=== PATIENT | male | born 1965 | race American Indian/Alaskan Native ===

== ENCOUNTER 2021-12-24 05:06 | Emergency (ER) | payer MEDICAID ==
--- NOTE | 2021-12-24 05:36 | Event Note ---
Date: 12/24/21 The patient was evaluated in the emergency department for symptoms described in the history of present illness. He/she was evaluated in the context of the global COVID-19 pandemic, which necessitated consideration that the patient might be at risk for infection with the virus that causes COVID-19. Institutional protocols and algorithms that pertain to the evaluation of patients at risk for COVID-19 are in a state of rapid change based on information released by regulatory bodies including the CDC and federal and state organizations. These policies and algorithms were followed during the patient's care in the emergency department. Please note that these policies, procedures and recommendations changed on a rapid basis. EMS documentation not available at time of chart dictation Medical screening examination: 56-year-old gentleman with a history of end-stage renal disease on hemodialysis, reportedly on home oxygen, referred to the emergency room by outpatient hemodialysis because of report of high potassium level, and hypoxia/low oxygen level. 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 Obtain EKG, chest x-ray, appropriate laboratory studies. Oncoming ER provider to perform detailed history and physical, and arrange for final disposition and therapy. Patient comfortable in a stretcher now, and does not appear to be in any acute distress
--- NOTE | 2021-12-24 06:13 | XRay Report ---
XR chest 1V ap INDICATION / CLINICAL INFORMATION: esrd dyspneas. COMPARISON: None available. FINDINGS: SUPPORT DEVICES: Right IJ central venous catheter projects over the right atrium. HEART /PULMONARY VASCULATURE: Cardiac enlargement with pulmonary vasculature congestion. LUNGS / PLEURA: Mild interstitial edema. No focal airspace consolidation. No pneumothorax. Additional findings: Diffuse sclerosis of the osseous structures likely reflect renal osteodystrophy. No acute osseous findings. IMPRESSION: Fluid overload/CHF with mild interstitial edema. Signer Name: Reid Ritter MD Signed: 12/24/2021 6:09 AM Workstation Name: [id number]
--- NOTE | 2021-12-24 06:24 | Emergency Department Report ---
ED General Adult HPI - General Chief complaint: Recheck/Abnormal Lab/Rx Stated complaint: SOB, ABNORMAL LABS Time Seen by Provider: 12/24/21 05:56 Source: EMS Mode of arrival: Stretcher Limitations: No Limitations - History of Present Illness Initial comments: Patient states that he is here because dialysis told him his potassium was high. He was dialyzed on Tuesday. After dialysis, blood work was sent. He went to dialysis this morning. They told him that his result from Tuesday showed a potassium of 7 and told him he needed to come here. They did not repeat the result. They did not treat his result. They did not call him beforehand. Patient states that he feels well. He is supposed to be dialyzed this morning. He denies chest pain. Has no shortness of breath. He has no cough or congestion. There is no vomiting or diarrhea. 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 Severity scale (0 -10): 0 - Related Data Allergies Allergy/AdvReac Type Severity Reaction Status Date / Time No Known Allergies Allergy Verified 12/24/21 05:13 ED Review of Systems ROS: Stated complaint: SOB, ABNORMAL LABS Other details as noted in HPI Comment: All other systems reviewed and negative Constitutional: denies: fever Eyes: denies: vision change ENT: denies: epistaxis Respiratory: denies: cough Cardiovascular: denies: chest pain Endocrine: denies: unexplained weight loss Gastrointestinal: denies: abdominal pain Musculoskeletal: denies: back pain Skin: denies: rash Neurological: denies: headache Hematological/Lymphatic: denies: easy bruising ED Past Medical Hx - Past Medical History Hx Hypertension: Yes Hx Renal Disease: Yes (On dialysis) Additional medical history: ESRD ON DIALYSIS - Surgical History Past Surgical History?: Yes Additional Surgical History: AV fistula - Family History Family history: hypertension - Social History Smoking Status: Unknown if ever smoked ED Physical Exam - General Limitations: No Limitations, Other (Pulse ox noted and normal) General appearance: alert, in no apparent distress - Head Head exam: Present: atraumatic, normocephalic, normal inspection - Eye Eye exam: Present: normal appearance, EOMI. Absent: scleral icterus - ENT ENT exam: Present: normal orophraynx, normal external ear exam - Neck Neck exam: Present: normal inspection. Absent: meningismus - Respiratory Respiratory exam: Present: normal lung sounds bilaterally. Absent: respiratory distress - Cardiovascular Cardiovascular Exam: Present: regular rate, normal rhythm - GI/Abdominal GI/Abdominal exam: Present: soft. Absent: distended, tenderness - Extremities Exam Extremities exam: Present: normal capillary refill - Back Exam Back exam: Absent: CVA tenderness (R), CVA tenderness (L) - Neurological Exam Neurological exam: Present: alert, oriented X3, CN II-XII intact. Absent: motor sensory deficit - Psychiatric Psychiatric exam: Present: normal affect, normal mood - Skin Skin exam: Present: warm, dry ED Course Vital Signs 12/24/21 12/24/21 12/24/21 05:14 05:31 05:40 Temperature 97.8 F Pulse Rate 101 H 99 H Respiratory 22 18 Rate Blood Pressure 127/91 Blood Pressure 119/82 [Left] O2 Sat by Pulse 97 97 97 Oximetry 12/24/21 06:31 Temperature Pulse Rate 96 H Respiratory 12 Rate Blood Pressure 134/88 Blood Pressure [Left] O2 Sat by Pulse 100 Oximetry - Reevaluation(s) Reevaluation #1: 12/24/21 06:23 EKG has been noted. Labs have been ordered previously. The laboratory helper has been asked to draw the blood work at this time as this has not been sent yet. Reevaluation #2: 12/24/21 06:58 Chemistries were hemolyzed and this is being redrawn. The sample was rejected by the lab. CBC and coags have been reviewed. Reevaluation #3: 12/24/21 07:43 Potassium was noted. It is elevated at 5.9. This was treated and the patient was referred to dialysis today. He does not require emergent dialysis in the hospital. There is no EKG change. He has hyperkalemia and volume overload can be addressed by dialysis today. ED Medical Decision Making - Lab Data Result diagrams: 12/24/21 06:10 12/24/21 07:03 - EKG Data -: EKG Interpreted by Me - EKG Data When compared to previous EKG there are: previous EKG unavailable 12/24/21 06:23 [id number]-EKG shows normal sinus rhythm at 96. Intervals are normal including a QRS of 109 and a QT corrected of 468. Patient has no ST elevation to suggest STEMI. There is poor R wave progression. Patient has T wave inversion in lead III. There is no peaked T waves suggestive of hyperkalemia. - Radiology Data Radiology results: report reviewed Critical Care Time: No Critical care attestation.: If time is entered above; I have spent that time in minutes in the direct care of this critically ill patient, excluding procedure time. ED Disposition Clinical Impression: ESRD on dialysis, Hyperkalemia Disposition: HOME / SELF CARE / HOMELESS Is pt being admited?: No Condition: Stable Instructions: Hyperkalemia, Dialysis Additional Instructions: Go to dialysis. Return for problems. Follow-up with your kidney doctor and your family doctor. Referrals: CARL ALEJANDRE MD [Referring] - 3-5 Days VALERIE MONTELONGO MD [Staff Physician] - 3-5 Days
[2021-12-24 06:39] LABS: Hematocrit 35.2 % (35.5-45.6); Hemoglobin 10.8 gm/dl (11.8-15.2); Mean Corpuscular HGB Conc 31 % (32-34); Mean Corpuscular Volume 96 fl (84-94); Platelet Count 179 K/mm3 (140-440); Red Blood Count 3.67 M/mm3 (3.65-5.03); Red Cell Distribution Width 19.9 % (13.2-15.2)
[2021-12-24 06:50] VITALS: BP 134/88
[2021-12-24 06:50] LABS: INR 0.98 (0.87-1.13)
[2021-12-24 07:35] LABS: Calcium 10.6 mg/dL (8.4-10.2)
[2021-12-24] MEDS ORDERED: SODIUM POLYSTYRENE 15 GM/60 ML ORAL LIQD PO ONE (07:42)
[2021-12-24] MEDS ORDERED: SODIUM BICARB 8.4% 50 MEQ/50 ML SYRINGE IV ONE (07:43)
[2021-12-24] MEDS ORDERED: CALCIUM GLUCONATE 1,000 MG in SODIUM CHLORIDE 0.9% 100 ML IV ONE (07:43)
[2021-12-24] MEDS ORDERED: SODIUM BICARB 8.4% 50 MEQ/50 ML VIAL IV SCH (08:00)
[2021-12-24] MEDS ORDERED: CALC GLUCONATE 1GM/NS 100 ML 1 GM/100 ML BAG IV ONE (08:30)
--- NOTE | 2021-12-24 10:34 | Electrocardiograph Report ---
[facility] Test Date: 2021-12-24 Test Time: 05:59:54 Pat Name: DAKSHA ALCANTAR Department: Room: Gender: M Sampler Pickup: ROSRAIO Baez : 1965 Requested By: MERCEDEZ MOLINA Order Number: [id number] Reading MD: Rodrigo Butt Measurements Intervals [place] Rate: 96 P: 54 ND: 204 QRS: 192 QRSD: 109 T: 10 QT: 370 QTc: 468 Interpretive Statements Sinus rhythm Low voltage complexex in limb leads noted. Borderline prolonged ND interval Probable left atrial enlargement Inferior infarct, old No previous ECG available for comparison Electronically Signed On 12-24-2021 10:34:13 EST by Rodrigo Butt
== END 2021-12-24 18:49 | disposition home or self-care (01) ==
LOC: ED 05:06
DX: N18.6 End stage renal disease (principal); E87.6 Hypokalemia; I12.9 Hypertensive chronic kidney disease with stage 1 through stage 4 chronic kidney disease, or unspecified chronic kidney disease; E11.22 Type 2 diabetes mellitus with diabetic chronic kidney disease
CPT/HCPCS: 36415; 71045; 80048; 85027; 85610; 93005; 93010; 96365; 96375; 99284; J0610; J3490

== ENCOUNTER 2022-05-11 12:15 | Inpatient (IN) | payer MEDICAID ==
--- NOTE | 2022-05-11 12:45 | Emergency Department Report ---
ED Altered Mental Status HPI - General Chief Complaint: Altered Mental Status Stated Complaint: AMS Time Seen by Provider: 05/11/22 12:27 Source: EMS Mode of arrival: Stretcher Limitations: No Limitations - History of Present Illness Initial Comments: Patient is a 57-year-old male with history of ESRD on dialysis brought in by EMS for altered mental status. EMT noted rhythm strip findings concerning for STEMI. Patient denies chest pain on arrival. - Related Data Home Medications Medication Instructions Recorded Confirmed Last Taken Ergocalciferol (Vitamin D2) 50,000 unit PO QWEEK 12/24/21 12/24/21 12/20/21 [Vitamin D2] Losartan [Cozaar] 25 mg PO QDAY 12/24/21 12/24/21 12/23/21 Sucroferric Oxyhydroxide(Nf) 1,000 mg PO TIDWM 12/24/21 12/24/21 12/23/21 [Velphoro (Nf)] minoxidiL [Loniten] 5 mg PO QDAY 12/24/21 12/24/21 12/23/21 Allergies Allergy/AdvReac Type Severity Reaction Status Date / Time No Known Allergies Allergy Verified 12/24/21 05:13 ED Review of Systems ROS: Stated complaint: AMS Other details as noted in HPI Constitutional: no symptoms reported. denies: chills, fever Respiratory: no symptoms reported Cardiovascular: denies: chest pain, palpitations Gastrointestinal: as per HPI Musculoskeletal: denies: back pain, joint swelling, arthralgia Skin: denies: rash, lesions Neurological: weakness. denies: headache ED Past Medical Hx - Past Medical History Hx Hypertension: Yes Hx Renal Disease: Yes (On dialysis) Hx COPD: Yes (home 02 3 liters/ min NC) Additional medical history: ESRD ON DIALYSIS - Surgical History Additional Surgical History: AV fistula - Social History Smoking Status: Unknown if ever smoked - Medications Home Medications: Home Medications Medication Instructions Recorded Confirmed Last Taken Type Ergocalciferol (Vitamin D2) 50,000 unit PO QWEEK 12/24/21 12/24/21 12/20/21 History [Vitamin D2] Losartan [Cozaar] 25 mg PO QDAY 12/24/21 12/24/21 12/23/21 History Sucroferric Oxyhydroxide(Nf) 1,000 mg PO TIDWM 12/24/21 12/24/21 12/23/21 History [Velphoro (Nf)] minoxidiL [Loniten] 5 mg PO QDAY 12/24/21 12/24/21 12/23/21 History ED Physical Exam - General Limitations: No Limitations General appearance: in no apparent distress, lethargic, other (Chronically ill- appearing) - Head Head exam: Present: atraumatic, normocephalic - Respiratory Respiratory exam: Present: normal lung sounds bilaterally. Absent: respiratory distress - Cardiovascular Cardiovascular Exam: Present: regular rate, normal rhythm, normal heart sounds - GI/Abdominal GI/Abdominal exam: Present: soft. Absent: distended, tenderness - Rectal Rectal exam: Present: deferred - Neurological Exam Neurological exam: Present: other - Psychiatric Psychiatric exam: Present: normal affect, normal mood - Skin Skin exam: Present: warm, dry, intact, normal color ED Course Vital Signs 05/11/22 05/11/22 05/11/22 12:46 12:47 12:51 Temperature Pulse Rate 114 H 116 H Respiratory 22 20 21 Rate Blood Pressure 91/56 91/56 Blood Pressure [Left] O2 Sat by Pulse 100 100 Oximetry 05/11/22 05/11/22 05/11/22 13:01 13:10 13:11 Temperature Pulse Rate 118 H 120 H 120 H Respiratory 22 18 22 Rate Blood Pressure 91/56 87/52 Blood Pressure 87/52 [Left] O2 Sat by Pulse 100 99 100 Oximetry 05/11/22 05/11/22 05/11/22 13:20 13:21 13:41 Temperature Pulse Rate 117 H 116 H Respiratory 24 23 Rate Blood Pressure 91/51 91/51 Blood Pressure [Left] O2 Sat by Pulse 90 100 99 Oximetry 05/11/22 05/11/22 14:01 14:09 Temperature 98.7 F Pulse Rate 111 H Respiratory 20 Rate Blood Pressure 88/58 Blood Pressure [Left] O2 Sat by Pulse 100 Oximetry - Lab Data Result diagrams: 05/11/22 12:59 05/11/22 12:59 Lab Results 05/11/22 05/11/22 05/11/22 Range/Units 12:59 12:59 15:42 WBC 12.4 H (4.5-11.0) K/mm3 RBC 3.46 L (3.65-5.03) M/mm3 Hgb 10.3 L (11.8-15.2) gm/dl Hct 32.1 L (35.5-45.6) % MCV 93 (84-94) fl MCH 30 (28-32) pg MCHC 32 (32-34) % RDW 16.0 H (13.2-15.2) % Plt Count 208 (140-440) K/mm3 Add Manual Diff Complete Total Counted 100 Seg Neutrophils % Logistics Team Lead Seg Neuts % (Manual) 94.0 H (40.0-70.0) % Band Neutrophils % 0 % Lymphocytes % (Manual) 3.0 L (13.4-35.0) % Reactive Lymphs % (Man) 0 % Monocytes % (Manual) 3.0 (0.0-7.3) % Eosinophils % (Manual) 0 (0.0-4.3) % Basophils % (Manual) 0 (0.0-1.8) % Metamyelocytes % 0 % Myelocytes % 0 % Promyelocytes % 0 % Blast Cells % 0 % Nucleated RBC % Not Reportable Seg Neutrophils # Man 11.7 H (1.8-7.7) K/mm3 Band Neutrophils # 0.0 K/mm3 Lymphocytes # (Manual) 0.4 L (1.2-5.4) K/mm3 Abs React Lymphs (Man) 0.0 K/mm3 Monocytes # (Manual) 0.4 (0.0-0.8) K/mm3 Eosinophils # (Manual) 0.0 (0.0-0.4) K/mm3 Basophils # (Manual) 0.0 (0.0-0.1) K/mm3 Metamyelocytes # 0.0 K/mm3 Myelocytes # 0.0 K/mm3 Promyelocytes # 0.0 K/mm3 Blast Cells # 0.0 K/mm3 WBC Morphology Not Reportable Hypersegmented Neuts Not Reportable Hyposegmented Neuts Rare Hypogranular Neuts Not Reportable Smudge Cells Not Reportable Toxic Granulation Not Reportable Toxic Vacuolation Not Reportable Dohle Bodies Not Reportable Pelger-Huet Anomaly Not Reportable Talon Rods Not Reportable Platelet Estimate Consistent w auto Clumped Platelets Not Reportable Plt Clumps, EDTA Not Reportable Large Platelets Rare Giant Platelets Not Reportable Platelet Satelliting Not Reportable Plt Morphology Comment Not Reportable RBC Morphology Not Reportable Dimorphic RBCs Not Reportable Polychromasia Not Reportable Hypochromasia Not Reportable Poikilocytosis 1+ Anisocytosis Not Reportable Microcytosis Not Reportable Macrocytosis Not Reportable Spherocytes Not Reportable Pappenheimer Bodies Not Reportable Sickle Cells Not Reportable Target Cells Rare Tear Drop Cells Not Reportable Ovalocytes Not Reportable Stomatocytes 1+ Helmet Cells Not Reportable [place] Bodies Not Reportable [place] Rings Not Reportable [place] Cells Not Reportable Bite Cells Not Reportable Crenated Cell Not Reportable Elliptocytes Not Reportable Acanthocytes (Spur) Not Reportable Rouleaux Not Reportable Hemoglobin C Crystals Not Reportable Schistocytes Not Reportable Malaria parasites Not Reportable [place] Bodies Not Reportable Hem Pathologist Commnt No Sodium 142 (137-145) mmol/L Potassium 4.0 (3.6-5.0) mmol/L Chloride 92.5 L (98-107) mmol/L Carbon Dioxide 30 (22-30) mmol/L Anion Gap 24 mmol/L BUN 29 H (9-20) mg/dL Creatinine 4.9 H (0.8-1.3) mg/dL Estimated GFR 15 ml/min BUN/Creatinine Ratio 6 % Glucose 73 L (75-100) mg/dL POC Glucose 116 H (70-105) mg/dL Calcium 9.9 (8.4-10.2) mg/dL Total Bilirubin 0.20 (0.1-1.2) mg/dL AST 14 (5-40) units/L ALT 8 (7-56) units/L Alkaline Phosphatase 134 H (35-129) units/L Troponin T 0.254 H* (0.00-0.029) ng/mL Total Protein 8.7 H (6.3-8.2) g/dL Albumin 4.0 (3.9-5) g/dL Albumin/Globulin Ratio 0.9 % Triglycerides 124 (2-149) mg/dL Cholesterol 100 (50-199) mg/dL LDL Cholesterol Direct 37 L (50-130) mg/dL HDL Cholesterol 36 L (40-59) mg/dL Cholesterol/HDL Ratio 2.77 % - Medical Decision Making 57-year-old male brought in from dialysis by EMS for altered mental status. I discussed rhythm strip and EKG findings with . Does not feel this is acute STEMI however did note the ST depressions in the anterior leads. Initial troponin 0.254. No prior values available for comparison. Patient was also given 1 L bolus with significant improvement in his mental state. On reassessment patient states he is thirsty. He was also given a meal tray as his blood glucose was 72. He remains pain-free however given the noted ischemic findings on EKG we will admit for observation and cardiology consult. Critical care attestation.: If time is entered above; I have spent that time in minutes in the direct care of this critically ill patient, excluding procedure time. ED Disposition Clinical Impression: Altered mental status, Elevated troponin, Anterior ST segment depression Disposition: ADMITTED INPATIENT Is pt being admited?: Yes Condition: Stable
--- NOTE | 2022-05-11 12:57 | XRay Report ---
CHEST 1 VIEW 05/11/2022 11:49 AM INDICATION / CLINICAL INFORMATION: Chest Pain. COMPARISON: 12/24/2021 FINDINGS: SUPPORT DEVICES: Stable positioning of the right IJ permacath terminating in the right atrium HEART / MEDIASTINUM: Stable cardiomegaly LUNGS / PLEURA: Mild to moderate pulmonary venous congestion has developed. No consolidation, large p leural effusion or pneumothorax. ADDITIONAL FINDINGS: No significant additional findings. IMPRESSION: 1. Cardiomegaly and pulmonary venous congestion but no CHF. Pulmonary venous congestion is increased since 12/24/2021 exam. Signer Name: Jeffrey Martinez Jr, MD Signed: 05/11/2022 12:53 PM Workstation Name: [id number]
[2022-05-11] MEDS ORDERED: SODIUM CHLORIDE 0.9% 1000 ML 1,000 ML ONE ×2 (13:11→16:58)
[2022-05-11 14:21] LABS: Hematocrit 32.1 % (35.5-45.6); Hemoglobin 10.3 gm/dl (11.8-15.2); Mean Corpuscular HGB Conc 32 % (32-34); Mean Corpuscular Volume 93 fl (84-94); Platelet Count 208 K/mm3 (140-440); Red Blood Count 3.46 M/mm3 (3.65-5.03)
[2022-05-11 14:42] LABS: Calcium 9.9 mg/dL (8.4-10.2)
[2022-05-11 15:01] LABS: Basophils % (Manual) 0 % (0.0-1.8); Eosinophils % (Manual) 0 % (0.0-4.3); Total Cells Counted 100
[2022-05-11 15:03] LABS: Large Platelets Rare; Platelet Estimate Consistent w Auto; Poikilocytosis 1+; Stomatocytes 1+; Target Cells Rare
[2022-05-11 15:34] LABS: Chol/HDL Ratio 2.77 %
[2022-05-11] MEDS ORDERED: SODIUM CHLORIDE 0.9% 500 ML 500 ML IV ONE ×2 (16:57→20:38)
[2022-05-11] MEDS ORDERED: METOCLOPRAMIDE 10 MG/2 ML INJ IV PRN (18:59)
[2022-05-11] MEDS ORDERED: ACETAMINOPHEN 325 MG TAB PO PRN (18:59)
[2022-05-11] MEDS ORDERED: ONDANSETRON 4 MG/2 ML INJ IV PRN (18:59)
[2022-05-11] MEDS ORDERED: oxyCODONE /ACETAMINOPHEN 5-325MG TAB PO PRN (18:59)
[2022-05-11] MEDS ORDERED: LOSARTAN 25 MG TAB PO SCH (19:00)
--- NOTE | 2022-05-11 19:12 | History and Physical Report ---
History of Present Illness Date of examination: 05/11/22 Date of admission: 05/11/2022 Chief complaint: Altered mental status since a.m. History of present illness: 56-year-old female with history of end-stage renal disease and hypertension brought in by EMS for altered mental status. In the emergency room the there were EKG changes with ST depression V2 V3 V4 V5 V6. Initially code STEMI was called and after consultation with cardiology code STEMI was called off. Patient was hypotensive with a systolic around 80mm hg - Past Medical History Hx Hypertension: Yes Hx Renal Disease: Yes (On dialysis) Hx COPD: Yes (home 02 3 liters/ min NC) Additional medical history: ESRD ON DIALYSIS - Surgical History Additional Surgical History: AV fistula - Social History Smoking Status: Unknown if ever smoked - Medications Home Medications: Home Medications Medication Instructions Recorded Confirmed Last Taken Type Ergocalciferol (Vitamin D2) 50,000 unit PO QWEEK 12/24/21 12/24/21 12/20/21 History [Vitamin D2] Losartan [Cozaar] 25 mg PO QDAY 12/24/21 12/24/21 12/23/21 History Sucroferric Oxyhydroxide(Nf) 1,000 mg PO TIDWM 12/24/21 12/24/21 12/23/21 History [Velphoro (Nf)] minoxidiL [Loniten] 5 mg PO QDAY 12/24/21 12/24/21 12/23/21 History Review of Systems ROS: Stated complaint: AMS Other details as noted in HPI Constitutional: no symptoms reported. denies: chills, fever Respiratory: no symptoms reported Cardiovascular: denies: chest pain, palpitations Gastrointestinal: as per HPI Musculoskeletal: denies: back pain, joint swelling, arthralgia Skin: denies: rash, lesions Neurological: weakness. denies: headache Medications and Allergies Allergies Allergy/AdvReac Type Severity Reaction Status Date / Time No Known Allergies Allergy Verified 12/24/21 05:13 Home Medications Medication Instructions Recorded Confirmed Last Taken Type Ergocalciferol (Vitamin D2) 50,000 unit PO QWEEK 12/24/21 12/24/21 12/20/21 History [Vitamin D2] Losartan [Cozaar] 25 mg PO QDAY 12/24/21 12/24/21 12/23/21 History Sucroferric Oxyhydroxide(Nf) 1,000 mg PO TIDWM 12/24/21 12/24/21 12/23/21 H istory [Velphoro (Nf)] minoxidiL [Loniten] 5 mg PO QDAY 12/24/21 12/24/21 12/23/21 History Active Meds: Active Medications Acetaminophen (Acetaminophen 325 Mg Tab) 650 mg PO Q4H PRN PRN Reason: Pain MILD(1-3)/Fever >100.5/BRIAN Famotidine (Famotidine 10 Mg Tab) 10 mg PO BID CRISTIN Heparin Sodium (Porcine) (Heparin 10,000 Units/10 Ml Vial) 2,800 unit 40 unit/kg (2800 unit) IV Q6H PRN PRN Reason: Anti-Xa Assay < 0.1 units/ml Heparin Sodium/Sodium Chloride (Heparin/ 0.45% Nacl-25,000 Unit/500 Ml) 25,000 unit in 500 mls @ 21.092 mls/hr IV TITRATE CRISTIN; Protocol Losartan Potassium (Losartan 25 Mg Tab) 25 mg PO QDAY CRISTIN Metoclopramide HCl (Metoclopramide 10 Mg/2 Ml Inj) 10 mg IV Q6H PRN PRN Reason: Nausea And Vomiting Minoxidil (Minoxidil 2.5 Mg Tab) 5 mg PO QDAY CRISTIN Ondansetron HCl (Ondansetron 4 Mg/2 Ml Inj) 4 mg IV Q8H PRN PRN Reason: Nausea And Vomiting Oxycodone/Acetaminophen (Oxycodone /Acetaminophen 5-325mg Tab) 1 tab PO Q6H PRN PRN Reason: Pain, Moderate (4-6) Sodium Chloride (Sodium Chloride 0.9% 10 Ml Flush Syringe) 10 ml IV BID CRISTIN Sodium Chloride (Sodium Chloride 0.9% 10 Ml Flush Syringe) 10 ml IV PRN PRN PRN Reason: LINE FLUSH Exam - Constitutional Vitals: Temp Pulse Resp BP Pulse Ox 98.7 F 111 H 18 76/51 90 05/11/22 14:09 05/11/22 16:59 05/11/22 16:59 05/11/22 17:41 05/11/22 17:41 General appearance: Present: mild distress, well-nourished - EENT Eyes: Present: PERRL ENT: hearing intact, clear oral mucosa - Neck Neck: Present: supple, normal ROM - Respiratory Respiratory effort: normal Respiratory: bilateral: CTA - Cardiovascular Heart rate: 78 Rhythm: regular Heart Sounds: Present: S1 & S2. Absent: rub, click - Extremities Extremities: pulses symmetrical, No edema Peripheral Pulses: within normal limits - Abdominal General gastrointestinal: Present: soft, non-tender, non-distended, normal bowel sounds Male genitourinary: Present: normal - Integumentary Integumentary: Present: clear, warm, dry - Musculoskeletal Musculoskeletal: gait normal, strength equal bilaterally - Psychiatric Psychiatric: appropriate mood/affect, intact judgment & insight - Neurologic Neurologic: CNII-XII intact, moves all extremities HEART Score - HEART Score Troponin: Troponin T 0.318 ng/mL (0.00-0.029) H* 05/11/22 18:12 Results - Labs CBC & Chem 7: 05/12/22 02:50 05/12/22 01:15 Labs: Laboratory Last Values WBC 12.4 K/mm3 (4.5-11.0) H 05/11/22 12:59 RBC 3.46 M/mm3 (3.65-5.03) L 05/11/22 12:59 Hgb 10.3 gm/dl (11.8-15.2) L 05/11/22 12:59 Hct 32.1 % (35.5-45.6) L 05/11/22 12:59 MCV 93 fl (84-94) 05/11/22 12:59 MCH 30 pg (28-32) 05/11/22 12:59 MCHC 32 % (32-34) 05/11/22 12:59 RDW 16.0 % (13.2-15.2) H 05/11/22 12:59 Plt Count 208 K/mm3 (140-440) 05/11/22 12:59 Add Manual Diff Complete 05/11/22 12:59 Total Counted 100 05/11/22 12:59 Seg Neutrophils % [employer] 05/11/22 12:59 Seg Neuts % (Manual) 94.0 % (40.0-70.0) H 05/11/22 12:59 Band Neutrophils % 0 % 05/11/22 12:59 Lymphocytes % (Manual) 3.0 % (13.4-35.0) L 05/11/22 12:59 Reactive Lymphs % (Man) 0 % 05/11/22 12:59 Monocytes % (Manual) 3.0 % (0.0-7.3) 05/11/22 12:59 Eosinophils % (Manual) 0 % (0.0-4.3) 05/11/22 12:59 Basophils % (Manual) 0 % (0.0-1.8) 05/11/22 12:59 Metamyelocytes % 0 % 05/11/22 12:59 Myelocytes % 0 % 05/11/22 12:59 Promyelocytes % 0 % 05/11/22 12:59 Blast Cells % 0 % 05/11/22 12:59 Nucleated RBC % Not Reportable 05/11/22 12:59 Seg Neutrophils # Man 11.7 K/mm3 (1.8-7.7) H 05/11/22 12:59 Band Neutrophils # 0.0 K/mm3 05/11/22 12:59 Lymphocytes # (Manual) 0.4 K/mm3 (1.2-5.4) L 05/11/22 12:59 Abs React Lymphs (Man) 0.0 K/mm3 05/11/22 12:59 Monocytes # (Manual) 0.4 K/mm3 (0.0-0.8) 05/11/22 12:59 Eosinophils # (Manual) 0.0 K/mm3 (0.0-0.4) 05/11/22 12:59 Basophils # (Manual) 0.0 K/mm3 (0.0-0.1) 05/11/22 12:59 Metamyelocytes # 0.0 K/mm3 05/11/22 12:59 Myelocytes # 0.0 K/mm3 05/11/22 12:59 Promyelocytes # 0.0 K/mm3 05/11/22 12:59 Blast Cells # 0.0 K/mm3 05/11/22 12:59 WBC Morphology Not Reportable 05/11/22 12:59 Hypersegmented Neuts Not Reportable 05/11/22 12:59 Hyposegmented Neuts Rare 05/11/22 12:59 Hypogranular Neuts Not Reportable 05/11/22 12:59 Smudge Cells Not Reportable 05/11/22 12:59 Toxic Granulation Not Reportable 05/11/22 12:59 Toxic Vacuolation Not Reportable 05/11/22 12:59 Dohle Bodies Not Reportable 05/11/22 12:59 Pelger-Huet Anomaly Not Reportable 05/11/22 12:59 Talon Rods Not Reportable 05/11/22 12:59 Platelet Estimate Consistent w auto 05/11/22 12:59 Clumped Platelets Not Reportable 05/11/22 12:59 Plt Clumps, EDTA Not Reportable 05/11/22 12:59 Large Platelets Rare 05/11/22 12:59 Giant Platelets Not Reportable 05/11/22 12:59 Platelet Satelliting Not Reportable 05/11/22 12:59 Plt Morphology Comment Not Reportable 05/11/22 12:59 RBC Morphology Not Reportable 05/11/22 12:59 Dimorphic RBCs Not Reportable 05/11/22 12:59 Polychromasia Not Reportable 05/11/22 12:59 Hypochromasia Not Reportable 05/11/22 12:59 Poikilocytosis 1+ 05/11/22 12:59 Anisocytosis Not Reportable 05/11/22 12:59 Microcytosis Not Reportable 05/11/22 12:59 Macrocytosis Not Reportable 05/11/22 12:59 Spherocytes Not Reportable 05/11/22 12:59 Pappenheimer Bodies Not Reportable 05/11/22 12:59 Sickle Cells Not Reportable 05/11/22 12:59 Target Cells Rare 05/11/22 12:59 Tear Drop Cells Not Reportable 05/11/22 12:59 Ovalocytes Not Reportable 05/11/22 12:59 Stomatocytes 1+ 05/11/22 12:59 Helmet Cells Not Reportable 05/11/22 12:59 [place] Bodies Not Reportable 05/11/22 12:59 Ida Rings Not Reportable 05/11/22 12:59 Jessica Cells Not Reportable 05/11/22 12:59 Bite Cells Not Reportable 05/11/22 12:59 Crenated Cell Not Reportable 05/11/22 12:59 Elliptocytes Not Reportable 05/11/22 12:59 Acanthocytes (Spur) Not Reportable 05/11/22 12:59 Rouleaux Not Reportable 05/11/22 12:59 Hemoglobin C Crystals Not Reportable 05/11/22 12:59 Schistocytes Not Reportable 05/11/22 12:59 Malaria parasites Not Reportable 05/11/22 12:59 Jose Bodies Not Reportable 05/11/22 12:59 Hem Pathologist Commnt No 05/11/22 12:59 Sodium 142 mmol/L (137-145) 05/11/22 12:59 Potassium 4.0 mmol/L (3.6-5.0) 05/11/22 12:59 Chloride 92.5 mmol/L (98-107) L 05/11/22 12:59 Carbon Dioxide 30 mmol/L (22-30) 05/11/22 12:59 Anion Gap 24 mmol/L 05/11/22 12:59 BUN 29 mg/dL (9-20) H 05/11/22 12:59 Creatinine 4.9 mg/dL (0.8-1.3) H 05/11/22 12:59 Estimated GFR 15 ml/min 05/11/22 12:59 BUN/Creatinine Ratio 6 % 05/11/22 12:59 Glucose 73 mg/dL (75-100) L 05/11/22 12:59 POC Glucose 116 mg/dL (70-105) H 05/11/22 15:42 Calcium 9.9 mg/dL (8.4-10.2) 05/11/22 12:59 Total Bilirubin 0.20 mg/dL (0.1-1.2) 05/11/22 12:59 AST 14 units/L (5-40) 05/11/22 12:59 ALT 8 units/L (7-56) 05/11/22 12:59 Alkaline Phosphatase 134 units/L (35-129) H 05/11/22 12:59 Troponin T 0.318 ng/mL (0.00-0.029) H* 05/11/22 18:12 Total Protein 8.7 g/dL (6.3-8.2) H 05/11/22 12:59 Albumin 4.0 g/dL (3.9-5) 05/11/22 12:59 Albumin/Globulin Ratio 0.9 % 05/11/22 12:59 Triglycerides 124 mg/dL (2-149) 05/11/22 12:59 Cholesterol 100 mg/dL (50-199) 05/11/22 12:59 LDL Cholesterol Direct 37 mg/dL (50-130) L 05/11/22 12:59 HDL Cholesterol 36 mg/dL (40-59) L 05/11/22 12:59 Cholesterol/HDL Ratio 2.77 % 05/11/22 12:59 - Imaging and Cardiology EKG: report reviewed Chest x-ray: report reviewed Imaging and Cardiology: Chest x-ray Cardiomegaly and pulmonary venous congestion but no CHF. Pulmonary venous congestion is increased since 12/24/2021 Assessment and Plan Assessment and plan: Critical care statement The high probability OF a clinically significant sudden or life-threatening deterioration of the cardiorespiratory system and endocrine system required my full and direct attention, intervention and postoperative management. The aggregate critical care time was 40 minutes. The time is in addition to time spent performing reported procedures but includes the followin: Data review and interpretation 2: Patient assessment and monitoring of vital signs 3: Documentation 4:: Medication orders and management Advance Directives: Yes (Full code) VTE prophylaxis?: Chemical Plan of care discussed with patient/family: Yes - Patient Problems (1) NSTEMI (non-ST elevated myocardial infarction) Current Visit: Yes Status: Acute Plan to address problem: Troponin is elevated EKG changes with ST depressions in V2 to V6 Serial troponins and IV heparin initiated (2) Hypotension Current Visit: Yes Status: Acute Qualifiers: Hypotension type: idiopathic hypotension Qualified Code(s): I95.0 - Idiopa thic hypotension Plan to address problem: 500 cc normal saline boluses ordered twice Levophed if necessary (3) Pulmonary edema Current Visit: Yes Status: Acute Qualifiers: Chronicity: acute Qualified Code(s): J81.0 - Acute pulmonary edema Plan to address problem: Echocardiogram for ejection fraction Hemodialysis as tolerated for increased ultrafiltration (4) Hyperkalemia Current Visit: Yes Status: Acute Plan to address problem: Treated (5) COPD (chronic obstructive pulmonary disease) Current Visit: Yes Status: Chronic Plan to address problem: DuoNebs as needed (6) ESRD on hemodialysis Current Visit: Yes Status: Chronic Plan to address problem: Nephrology consulted (7) DVT prophylaxis Current Visit: Yes Status: Acute Plan to address problem: On IV heparin and GI prophylaxis (8) Advance care planning Current Visit: Yes Status: Acute Plan to address problem: Disease education conducted, care plan discussed, diagnosis discussed, prognosis discussed. Patient is full code. Patient acknowledges understanding and agreement with care plan. +30 minutes.
[2022-05-11 19:52] LABS: Hemoglobin 9.6 gm/dl (11.8-15.2)
[2022-05-11 19:53] LABS: Hematocrit 30.5 % (35.5-45.6)
[2022-05-11 20:04] LABS: INR 1.1 (0.87-1.13)
[2022-05-11 20:05] LABS: Partial Thromboplastin Time 42.1 Sec. (24.2-36.6)
[2022-05-11 20:12] LABS: Creatine Kinase MB 5.4 ng/mL (0.0-4.0)
[2022-05-11] MEDS: HEPARIN/ 0.45% NACL DRIP 25,000 UNIT/500 ML BAG IV SCH (20:48)
[2022-05-11] MEDS ORDERED: SODIUM CHLORIDE 0.9% 1000 ML 1,000 ML IV ONE (22:19)
[2022-05-11] MEDS: FAMOTIDINE 10 MG TAB PO SCH (22:23)
[2022-05-11] MEDS ORDERED: SODIUM CHLORIDE 0.9% 1000 ML 1,000 ML IV SCH (22:30)
[2022-05-12] MEDS ORDERED: SODIUM CHLORIDE 0.9% 500 ML 500 ML IV ONE (01:51)
--- NOTE | 2022-05-12 03:33 | Event Note ---
Date: 05/12/22 Patient is hypotensive BP is 53/30 Is 74/41. Patient was given IV fluid bolus but BP is not improving and patient is a renal patient. Put the patient on Levophed drip and transferred to the ICU. Reconsult critical care evaluation
[2022-05-12] MEDS: NORepinephrine/NS 8 MG-250 ML 8 MG/250 ML INFUS..BTL IV SCH ×2 (03:37→20:48)
[2022-05-12 03:59] LABS: Basophils # (Auto) 0.1 K/mm3 (0.0-0.1); Basophils % (Auto) 1.3 % (0.0-1.8); Eosinophils % (Auto) 0.3 % (0.0-4.3); Hematocrit 29.8 % (35.5-45.6); Hemoglobin 9.4 gm/dl (11.8-15.2); Lymphocytes # (Auto) 0.7 K/mm3 (1.2-5.4); Lymphocytes % (Auto) 6.8 % (13.4-35.0); Mean Corpuscular HGB Conc 32 % (32-34); Mean Corpuscular Volume 95 fl (84-94); Monocytes # (Auto) 0.9 K/mm3 (0.0-0.8); Monocytes % (Auto) 8.4 % (0.0-7.3); Platelet Count 201 K/mm3 (140-440); Red Blood Count 3.14 M/mm3 (3.65-5.03); Red Cell Distribution Width 16.6 % (13.2-15.2)
[2022-05-12 04:17] LABS: Creatine Kinase MB 6.4 ng/mL (0.0-4.0)
[2022-05-12 04:18] LABS: Albumin 3.7 g/dL (3.9-5); Blood Urea Nitrogen 36 mg/dL (9-20); Calcium 9.4 mg/dL (8.4-10.2); Hemolysis Index 9
[2022-05-12 04:34] LABS: Alanine Aminotransferase < 5 units/L (7-56); BUN/Creatinine Ratio 6
[2022-05-12] MEDS: HEPARIN 10,000 UNITS/10 ML VIAL IV PRN ×2 (04:45→16:06)
[2022-05-12] MEDS ORDERED: MINOXIDIL 2.5 MG TAB PO SCH (10:00)
[2022-05-12] MEDS: FAMOTIDINE 10 MG TAB PO SCH ×2 (10:30→22:27)
[2022-05-12 11:27] LABS: Creatine Kinase MB 7.9 ng/mL (0.0-4.0)
--- NOTE | 2022-05-12 12:09 | Consultation ---
History of Present Illness - Reason for Consult Consult date: 05/12/22 Hypotension on Levophed - History of Present Illness 57 y/o male with COPD, chronic respiratory failure, alcholic cirrhosis and ESRD on HD admitted yesterday originally as STEMI but then called off. Was going to be admitted to the floor and subsequently became hypotensive requiring levophed. Now changed to ICU admit. Awake and alert. Tolerating PO. ON levo at 10 currently. Reviewed outside records from [place]. Usually goes to [facility]. Last admit was July. Appears to have had blood pressure issues in the past requiring holding of antihypertensives and even being placed on midodrine. Medications and Allergies Allergies Allergy/AdvReac Type Severity Reaction Status Date / Time No Known Allergies Allergy Verified 12/24/21 05:13 Home Medications Medication Instructions Recorded Confirmed Last Taken Type Ergocalciferol (Vitamin D2) 50,000 unit PO QWEEK 12/24/21 12/24/21 12/20/21 History [Vitamin D2] Losartan [Cozaar] 25 mg PO QDAY 12/24/21 12/24/21 12/23/21 History Sucroferric Oxyhydroxide(Nf) 1,000 mg PO TIDWM 12/24/21 12/24/21 12/23/21 History [Velphoro (Nf)] minoxidiL [Loniten] 5 mg PO QDAY 12/24/21 12/24/21 12/23/21 History Active Meds: Active Medications Acetaminophen (Acetaminophen 325 Mg Tab) 650 mg PO Q4H PRN PRN Reason: Pain MILD(1-3)/Fever >100.5/BRIAN Famotidine (Famotidine 10 Mg Tab) 10 mg PO BID CRISTIN Last Admin: 05/11/22 22:23 Dose: 10 mg Heparin Sodium (Porcine) (Heparin 10,000 Units/10 Ml Vial) 2,800 unit 40 unit/kg (2800 unit) IV Q6H PRN PRN Reason: Anti-Xa Assay < 0.1 units/ml Last Admin: 05/12/22 04:45 Dose: 2,800 unit Heparin Sodium/Sodium Chloride (Heparin/ 0.45% Nacl-25,000 Unit/500 Ml) 25,000 unit in 500 mls @ 20 mls/hr IV TITRATE CRISTIN; Protocol Last Titration: 05/12/22 09:37 Dose: 0 units/hr, 0 mls/hr Sodium Chloride (Nacl 0.9% 1000 Ml) 1,000 mls @ 150 mls/hr IV DIRECT CRISTIN Last Admin: 05/11/22 23:40 Dose: 150 mls/hr NORepinephrine/NS 8 MG-250 ML (Norepinephrine/Ns 8 Mg-250 Ml (Double Conc)) 8 mg in 250 mls @ 3.75 mls/hr IV TITRATE CRISTIN; Protocol Last Titration: 05/12/22 06:00 Dose: 10 mcg/min, 18.75 mls/hr Metoclopramide HCl (Metoclopramide 10 Mg/2 Ml Inj) 10 mg IV Q6H PRN PRN Reason: Nausea And Vomiting Midodrine (Midodrine 10 Mg Tab) 10 mg PO TID@0800,1200,1600 CRISTIN Ondansetron HCl (Ondansetron 4 Mg/2 Ml Inj) 4 mg IV Q8H PRN PRN Reason: Nausea And Vomiting Oxycodone/Acetaminophen (Oxycodone /Acetaminophen 5-325mg Tab) 1 tab PO Q6H PRN PRN Reason: Pain, Moderate (4-6) Sodium Chloride (Sodium Chloride 0.9% 10 Ml Flush Syringe) 10 ml IV BID CRISTIN Last Admin: 05/11/22 22:27 Dose: 10 ml Sodium Chloride (Sodium Chloride 0.9% 10 Ml Flush Syringe) 10 ml IV PRN PRN PRN Reason: LINE FLUSH Exam - Constitutional Vitals: Temp Pulse Resp BP Pulse Ox 97.6 F 98 H 13 100/53 100 05/11/22 20:15 05/12/22 09:10 05/12/22 09:10 05/12/22 11:12 05/12/22 06:40 General appearance: Present: no acute distress, well-nourished - EENT Eyes: Present: PERRL ENT: hearing intact - Neck Neck: Present: supple - Respiratory Respiratory effort: normal Respiratory: bilateral: diminished Results - Labs CBC & Chem 7: 05/13/22 08:50 05/13/22 08:50 Labs: Abnormal lab results 05/11/22 05/11/22 05/11/22 Range/Units 12:59 12:59 15:42 WBC 12.4 H (4.5-11.0) K/mm3 RBC 3.46 L (3.65-5.03) M/mm3 Hgb 10.3 L (11.8-15.2) gm/dl Hct 32.1 L (35.5-45.6) % MCV (84-94) fl RDW 16.0 H (13.2-15.2) % Lymph % (Auto) (13.4-35.0) % [place] % (Auto) (0.0-7.3) % Lymph # (Auto) (1.2-5.4) K/mm3 [place] # (Auto) (0.0-0.8) K/mm3 Seg Neutrophils % (40.0-70.0) % Seg Neuts % (Manual) 94.0 H (40.0-70.0) % Lymphocytes % (Manual) 3.0 L (13.4-35.0) % Seg Neutrophils # (1.8-7.7) K/mm3 Seg Neutrophils # Man 11.7 H (1.8-7.7) K/mm3 Lymphocytes # (Manual) 0.4 L (1.2-5.4) K/mm3 PT (12.2-14.9) Sec. APTT (24.2-36.6) Sec. Heparin Anti-Xa Level (0.3-0.7) U.I./ml Potassium (3.6-5.0) mmol/L Chloride 92.5 L (98-107) mmol/L BUN 29 H (9-20) mg/dL Creatinine 4.9 H (0.8-1.3) mg/dL Glucose 73 L (75-100) mg/dL POC Glucose 116 H (70-105) mg/dL ALT (7-56) units/L Alkaline Phosphatase 134 H (35-129) units/L CK-MB (CK-2) (0.0-4.0) ng/mL CK-MB (CK-2) Rel Index (0-4) Troponin T 0.254 H* (0.00-0.029) ng/mL Total Protein 8.7 H (6.3-8.2) g/dL Albumin (3.9-5) g/dL LDL Cholesterol Direct 37 L (50-130) mg/dL HDL Cholesterol 36 L (40-59) mg/dL 05/11/22 05/11/22 05/11/22 Range/Units 16:19 18:12 19:35 WBC (4.5-11.0) K/mm3 RBC (3.65-5.03) M/mm3 Hgb (11.8-15.2) gm/dl Hct (35.5-45.6) % MCV (84-94) fl RDW (13.2-15.2) % Lymph % (Auto) (13.4-35.0) % [place] % (Auto) (0.0-7.3) % Lymph # (Auto) (1.2-5.4) K/mm3 [place] # (Auto) (0.0-0.8) K/mm3 Seg Neutrophils % (40.0-70.0) % Seg Neuts % (Manual) (40.0-70.0) % Lymphocytes % (Manual) (13.4-35.0) % Seg Neutrophils # (1.8-7.7) K/mm3 Seg Neutrophils # Man (1.8-7.7) K/mm3 Lymphocytes # (Manual) (1.2-5.4) K/mm3 PT (12.2-14.9) Sec. APTT (24.2-36.6) Sec. Heparin Anti-Xa Level (0.3-0.7) U.I./ml Potassium (3.6-5.0) mmol/L Chloride (98-107) mmol/L BUN (9-20) mg/dL Creatinine (0.8-1.3) mg/dL Glucose (75-100) mg/dL POC Glucose (70-105) mg/dL ALT (7-56) units/L Alkaline Phosphatase (35-129) units/L CK-MB (CK-2) 5.4 H (0.0-4.0) ng/mL CK-MB (CK-2) Rel Index 9.1 H (0-4) Troponin T 0.305 H* D 0.318 H* 0.351 H* (0.00-0.029) ng/mL Total Protein (6.3-8.2) g/dL Albumin (3.9-5) g/dL LDL Cholesterol Direct (50-130) mg/dL HDL Cholesterol (40-59) mg/dL 05/11/22 05/11/22 05/12/22 Range/Units 19:35 19:35 01:15 WBC (4.5-11.0) K/mm3 RBC (3.65-5.03) M/mm3 Hgb 9.6 L (11.8-15.2) gm/dl Hct 30.5 L (35.5-45.6) % MCV (84-94) fl RDW (13.2-15.2) % Lymph % (Auto) (13.4-35.0) % [place] % (Auto) (0.0-7.3) % Lymph # (Auto) (1.2-5.4) K/mm3 [place] # (Auto) (0.0-0.8) K/mm3 Seg Neutrophils % (40.0-70.0) % Seg Neuts % (Manual) (40.0-70.0) % Lymphocytes % (Manual) (13.4-35.0) % Seg Neutrophils # (1.8-7.7) K/mm3 Seg Neutrophils # Man (1.8-7.7) K/mm3 Lymphocytes # (Manual) (1.2-5.4) K/mm3 PT 15.5 H (12.2-14.9) Sec. APTT 42.1 H (24.2-36.6) Sec. Heparin Anti-Xa Level (0.3-0.7) U.I./ml Potassium 5.4 H D (3.6-5.0) mmol/L Chloride (98-107) mmol/L BUN 36 H (9-20) mg/dL Creatinine 5.8 H (0.8-1.3) mg/dL Glucose (75-100) mg/dL POC Glucose (70-105) mg/dL ALT < 5 L (7-56) units/L Alkaline Phosphatase 134 H (35-129) units/L CK-MB (CK-2) 6.4 H (0.0-4.0) ng/mL CK-MB (CK-2) Rel Index 9.8 H (0-4) Troponin T 0.381 H* (0.00-0.029) ng/mL Total Protein (6.3-8.2) g/dL Albumin 3.7 L (3.9-5) g/dL LDL Cholesterol Direct (50-130) mg/dL HDL Cholesterol (40-59) mg/dL 05/12/22 05/12/22 05/12/22 Range/Units 02:50 02:50 10:33 WBC (4.5-11.0) K/mm3 RBC 3.14 L (3.65-5.03) M/mm3 Hgb 9.4 L (11.8-15.2) gm/dl Hct 29.8 L (35.5-45.6) % MCV 95 H (84-94) fl RDW 16.6 H (13.2-15.2) % Lymph % (Auto) 6.8 L (13.4-35.0) % [place] % (Auto) 8.4 H (0.0-7.3) % Lymph # (Auto) 0.7 L (1.2-5.4) K/mm3 [place] # (Auto) 0.9 H (0.0-0.8) K/mm3 Seg Neutrophils % 83.2 H (40.0-70.0) % Seg Neuts % (Manual) (40.0-70.0) % Lymphocytes % (Manual) (13.4-35.0) % Seg Neutrophils # 8.9 H (1.8-7.7) K/mm3 Seg Neutrophils # Man (1.8-7.7) K/mm3 Lymphocytes # (Manual) (1.2-5.4) K/mm3 PT (12.2-14.9) Sec. APTT (24.2-36.6) Sec. Heparin Anti-Xa Level < 0.10 L (0.3-0.7) U.I./ml Potassium (3.6-5.0) mmol/L Chloride (98-107) mmol/L BUN (9-20) mg/dL Creatinine (0.8-1.3) mg/dL Glucose (75-100) mg/dL POC Glucose (70-105) mg/dL ALT (7-56) units/L Alkaline Phosphatase (35-129) units/L CK-MB (CK-2) 7.9 H (0.0-4.0) ng/mL CK-MB (CK-2) Rel Index 10.2 H (0-4) Troponin T (0.00-0.029) ng/mL Total Protein (6.3-8.2) g/dL Albumin (3.9-5) g/dL LDL Cholesterol Direct (50-130) mg/dL HDL Cholesterol (40-59) mg/dL 05/12/22 Range/Units 10:33 WBC (4.5-11.0) K/mm3 RBC (3.65-5.03) M/mm3 Hgb (11.8-15.2) gm/dl Hct (35.5-45.6) % MCV (84-94) fl RDW (13.2-15.2) % Lymph % (Auto) (13.4-35.0) % [place] % (Auto) (0.0-7.3) % Lymph # (Auto) (1.2-5.4) K/mm3 [place] # (Auto) (0.0-0.8) K/mm3 Seg Neutrophils % (40.0-70.0) % Seg Neuts % (Manual) (40.0-70.0) % Lymphocytes % (Manual) (13.4-35.0) % Seg Neutrophils # (1.8-7.7) K/mm3 Seg Neutrophils # Man (1.8-7.7) K/mm3 Lymphocytes # (Manual) (1.2-5.4) K/mm3 PT (12.2-14.9) Sec. APTT (24.2-36.6) Sec. Heparin Anti-Xa Level < 0.10 L (0.3-0.7) U.I./ml Potassium (3.6-5.0) mmol/L Chloride (98-107) mmol/L BUN (9-20) mg/dL Creatinine (0.8-1.3) mg/dL Glucose (75-100) mg/dL POC Glucose (70-105) mg/dL ALT (7-56) units/L Alkaline Phosphatase (35-129) units/L CK-MB (CK-2) (0.0-4.0) ng/mL CK-MB (CK-2) Rel Index (0-4) Troponin T (0.00-0.029) ng/mL Total Protein (6.3-8.2) g/dL Albumin (3.9-5) g/dL LDL Cholesterol Direct (50-130) mg/dL HDL Cholesterol (40-59) mg/dL Assessment and Plan 57 y/o male with complex medical history, originally admitted as stemi then called off, now with hypotension of unknown etiology 1. Start Midodrine 10 TID 2. Hold on all antihypertensives 3. Suggest repeat echo, last one done in [place] was July and at that time showed and EF of 45%. The was hypokinesis of left ventricle 4. Hold on IVF's 5. Resume home COPD regimen if any 6. Supplemental O2 Guarded prognosis. CCT 31 minutes.
--- NOTE | 2022-05-12 12:55 | Consultation ---
History of Present Illness - Reason for Consult Consult date: 05/12/22 end stage renal disease - History of Present Illness This is a 57 year old male who presented to the E.R for evaluation of Altered Mental Status. On evaluation, patient was found to have STEMI and Hypotensive. Patient has history of ESRD and goes to [facility] under Dr. Barraza on T,T,S schedule. Clinic states patient received all his HD treatment yesterday.We are being consulted for management of this patient's ESRD. Past History Past Medical History: anemia, ESRD, other Past Surgical History: Other (Access placement- permcath in use, old right AVF site) Social history: no significant social history Family history: no significant family history Medications and Allergies Allergies Allergy/AdvReac Type Severity Reaction Status Date / Time No Known Allergies Allergy Verified 12/24/21 05:13 Home Medications Medication Instructions Recorded Confirmed Last Taken Type Ergocalciferol (Vitamin D2) 50,000 unit PO QWEEK 12/24/21 12/24/21 12/20/21 History [Vitamin D2] Losartan [Cozaar] 25 mg PO QDAY 12/24/21 12/24/21 12/23/21 History Sucroferric Oxyhydroxide(Nf) 1,000 mg PO TIDWM 12/24/21 12/24/21 12/23/21 History [Velphoro (Nf)] minoxidiL [Loniten] 5 mg PO QDAY 12/24/21 12/24/21 12/23/21 History Active Meds: Active Medications Acetaminophen (Acetaminophen 325 Mg Tab) 650 mg PO Q4H PRN PRN Reason: Pain MILD(1-3)/Fever >100.5/BRIAN Famotidine (Famotidine 10 Mg Tab) 10 mg PO BID CRISTIN Last Admin: 05/11/22 22:23 Dose: 10 mg Heparin Sodium (Porcine) (Heparin 10,000 Units/10 Ml Vial) 2,800 unit 40 unit/kg (2800 unit) IV Q6H PRN PRN Reason: Anti-Xa Assay < 0.1 units/ml Last Admin: 05/12/22 04:45 Dose: 2,800 unit Heparin Sodium/Sodium Chloride (Heparin/ 0.45% Nacl-25,000 Unit/500 Ml) 25,000 unit in 500 mls @ 20 mls/hr IV TITRATE CRISTIN; Protocol Last Titration: 05/12/22 09:37 Dose: 0 units/hr, 0 mls/hr Sodium Chloride (Nacl 0.9% 1000 Ml) 1,000 mls @ 150 mls/hr IV DIRECT CRISTIN Last Admin: 05/11/22 23:40 Dose: 150 mls/hr NORepinephrine/NS 8 MG-250 ML (Norepinephrine/Ns 8 Mg-250 Ml (Double Conc)) 8 mg in 250 mls @ 3.75 mls/hr IV TITRATE CRISTIN; Protocol Last Titration: 05/12/22 06:00 Dose: 10 mcg/min, 18.75 mls/hr Metoclopramide HCl (Metoclopramide 10 Mg/2 Ml Inj) 10 mg IV Q6H PRN PRN Reason: Nausea And Vomiting Midodrine (Midodrine 10 Mg Tab) 10 mg PO TID@0800,1200,1600 CRISTIN Ondansetron HCl (Ondansetron 4 Mg/2 Ml Inj) 4 mg IV Q8H PRN PRN Reason: Nausea And Vomiting Oxycodone/Acetaminophen (Oxycodone /Acetaminophen 5-325mg Tab) 1 tab PO Q6H PRN PRN Reason: Pain, Moderate (4-6) Sodium Chloride (Sodium Chloride 0.9% 10 Ml Flush Syringe) 10 ml IV BID CRISTIN Last Admin: 05/11/22 22:27 Dose: 10 ml Sodium Chloride (Sodium Chloride 0.9% 10 Ml Flush Syringe) 10 ml IV PRN PRN PRN Reason: LINE FLUSH Review of Systems Constitutional: fatigue, weakness, no weight loss, no weight gain, no fever, no chills, no sweats Ears, nose, mouth and throat: no ear pain, no ear discharge, no tinnitis, no decreased hearing, no nose pain, no nasal congestion, no nasal discharge Cardiovascular: no chest pain, no orthopnea, no palpitations, no rapid/irregular heart beat, no edema, no syncope, no lightheadedness, no shortness of breath Respiratory: no cough, no cough with sputum, no excessive sputum, no hemoptysis, no shortness of breath, no dyspnea on exertion Gastrointestinal: no abdominal pain, no nausea, no vomiting, no diarrhea, no constipation, no change in bowel habits, no coffee ground emesis Genitourinary Male: no dysuria, no hematuria, no flank pain, no discharge, no urinary frequency Rectal: no pain, no incontinence, no bleeding Musculoskeletal: no neck stiffness, no neck pain, no shooting arm pain, no arm numbness/tingling, no low back pain, no shooting leg pain Integumentary: no rash, no pruritis, no redness, no sores, no wounds, no jaundice Neurological: change in speech Psychiatric: no anxiety, no memory loss, no change in sleep habits, no sleep disturbances, no insomnia, no hypersomnia, no change in appetite, no change in libido Endocrine: no cold intolerance, no heat intolerance, no polyphagia, no excessive thirst, no polydipsia, no polyuria, no nocturia Exam - Vital Signs Vital signs: Vital Signs Resp 05/11/22 12:46 - General Appearance General appearance: well-developed, appears stated age EENT: ATNC, PERRL, hearing intact, vision intact Neck: Present: neck supple, trachea midline Respiratory: Decreased Breath Sounds Heart: S1S2 Gastrointestinal: Present: normoactive bowel sounds Integumentary: warm and dry Neurologic: alert and oriented x3 Musculoskeletal: Present: other (No edema) Results - Lab Results 05/12/22 02:50 05/12/22 01:15 Most recent lab results Calcium 9.4 mg/dL (8.4-10.2) 05/12/22 01:15 Assessment and Plan Assessment: End Stage Renal Disease Hypotension AMS Anemia Hyperkalemia Plan: No acute indication for HD today. [facility] states patient received his full HD treatment there yesterday. Hemodialysis tomorrow with gentle UF given Hypotension on pressor support. IV Albumin with HD Hypotenison-on Norepinephrine drip and Midodrine 10 mg po TID Hyperkalemia- Kayexalate 30 gram x 1 today Renally dose medications Obtain daily weights Monitor I/O's daily Assess dialysis needs daily Outpatient HD: [facility] under Dr. Barraza, on T,T,S schedule Plan of care reviewed by Dr. Jones
[2022-05-12] MEDS: MIDODRINE 10 MG TAB PO SCH ×2 (13:08→16:52)
[2022-05-12] MEDS ORDERED: SODIUM POLYSTYRENE 15 GM/60 ML ORAL LIQD PO SCH (14:00)
--- NOTE | 2022-05-12 14:58 | Consultation ---
History of Present Illness Consult date: 05/12/22 Requesting physician: RAMBO CHILDRESS Consult reason: other (ST depression) History of present illness: Patient is a 57-year-old male with a past medical history of end-stage renal disease on hemodialysis, chronic respiratory failure, cirrhosis, who was brought to the ED for complaint of altered mental status/slurred speech. Patient reports that yesterday he was at his dialysis and after finishing his session he fell asleep and when he woke up he was having slurred speech. He was brought to the ED for further evaluation. In the ED a code STEMI was initially called however electronic scale subassembler interventionlist determined the patient was not having an acute [place]. Patient was found to be hypotensive and started on Levophed. At time of interview patient is alert and oriented and denies any complaints of chest pain, nausea, vomiting, diaphoresis or shortness of breath. Patient does report a productive cough which he states has been occurring for at least a week. He reports that he was recently discharged from [facility]. Per review of records patient was discharged from [facility] on 05/10/2022 and found to have pulmonary edema thought to be associated volume overload and needed to be removed through hemodialysis. Past History Past Medical History: anemia, ESRD, other Past Surgical History: Other (Access placement- permcath in use, old right AVF site) Social history: no significant social history Family history: no significant family history Medications and Allergies Allergies Allergy/AdvReac Type Severity Reaction Status Date / Time No Known Allergies Allergy Verified 12/24/21 05:13 Home Medications Medication Instructions Recorded Confirmed Last Taken Type Ergocalciferol (Vitamin D2) 50,000 unit PO QWEEK 12/24/21 12/24/21 12/20/21 History [Vitamin D2] Losartan [Cozaar] 25 mg PO QDAY 12/24/21 12/24/21 12/23/21 History Sucroferric Oxyhydroxide(Nf) 1,000 mg PO TIDWM 12/24/21 12/24/21 12/23/21 History [Velphoro (Nf)] minoxidiL [Loniten] 5 mg PO QDAY 12/24/21 12/24/21 12/23/21 History Active Meds: Active Medications Acetaminophen (Acetaminophen 325 Mg Tab) 650 mg PO Q4H PRN PRN Reason: Pain MILD(1-3)/Fever >100.5/BRIAN Aspirin (Aspirin 81 Mg Tab Chew) 81 mg PO QDAY [facility] Atorvastatin Calcium (Atorvastatin 40 Mg Tab) 40 mg PO QHS [facility] Famotidine (Famotidine 10 Mg Tab) 10 mg PO BID [facility] Last Admin: 05/11/22 22:23 Dose: 10 mg Heparin Sodium (Porcine) (Heparin 10,000 Units/10 Ml Vial) 2,800 unit 40 unit/kg (2800 unit) IV Q6H PRN PRN Reason: Anti-Xa Assay < 0.1 units/ml Last Admin: 05/12/22 04:45 Dose: 2,800 unit Heparin Sodium/Sodium Chloride (Heparin/ 0.45% Nacl-25,000 Unit/500 Ml) 25,000 unit in 500 mls @ 20 mls/hr IV TITRATE CRISTIN; Protocol Last Titration: 05/12/22 09:37 Dose: 0 units/hr, 0 mls/hr Sodium Chloride (Nacl 0.9% 1000 Ml) 1,000 mls @ 150 mls/hr IV DIRECT CRISTIN Last Admin: 05/11/22 23:40 Dose: 150 mls/hr NORepinephrine/NS 8 MG-250 ML (Norepinephrine/Ns 8 Mg-250 Ml (Double Conc)) 8 mg in 250 mls @ 3.75 mls/hr IV TITRATE CRISTIN; Protocol Last Titration: 05/12/22 06:00 Dose: 10 mcg/min, 18.75 mls/hr Metoclopramide HCl (Metoclopramide 10 Mg/2 Ml Inj) 10 mg IV Q6H PRN PRN Reason: Nausea And Vomiting Midodrine (Midodrine 10 Mg Tab) 10 mg PO TID@0800,1200,1600 [facility] Last Admin: 05/12/22 13:08 Dose: 10 mg Ondansetron HCl (Ondansetron 4 Mg/2 Ml Inj) 4 mg IV Q8H PRN PRN Reason: Nausea And Vomiting Oxycodone/Acetaminophen (Oxycodone /Acetaminophen 5-325mg Tab) 1 tab PO Q6H PRN PRN Reason: Pain, Moderate (4-6) Sodium Chloride (Sodium Chloride 0.9% 10 Ml Flush Syringe) 10 ml IV BID [facility] Last Admin: 05/12/22 11:00 Dose: 10 ml Sodium Chloride (Sodium Chloride 0.9% 10 Ml Flush Syringe) 10 ml IV PRN PRN PRN Reason: LINE FLUSH Sodium Polystyrene Sulfonate (Sodium Polystyrene 15 Gm/60 Ml Oral Liqd) 30 gm PO ONCE@1400 CRISTIN Stop: 05/12/22 17:00 Review of Systems Constitutional: no weight loss, no weight gain Ears, nose, mouth and throat: no nasal discharge, no sinus pressure, no sinus pain Cardiovascular: no chest pain, no orthopnea, no palpitations, no lightheadedness, no shortness of breath Respiratory: cough with sputum, no shortness of breath, no dyspnea on exertion Gastrointestinal: no abdominal pain, no nausea, no vomiting Musculoskeletal: no neck stiffness, no neck pain, no shooting arm pain Integumentary: no rash, no pruritis, no redness Neurological: other (slurred speech) Psychiatric: no anxiety, no memory loss Endocrine: no cold intolerance, no heat intolerance Hematologic/Lymphatic: no easy bruising, no easy bleeding Physical Examination Vital Signs Resp 05/11/22 12:46 General appearance: no acute distress HEENT: Positive: PERRL, Normocephaly Neck: Positive: trachea midline Cardiac: Positive: Reg Rate and Rhythm, Systolic Murmur Lungs: Negative: Decreased Breath Sounds Neuro: Positive: Grossly Intact Abdomen: Positive: Ascites Skin: Negative: Rash, Suspicious Lesions, Ulceration Extremities: Present: normal. Absent: edema Results 05/12/22 02:50 05/12/22 01:15 Cardiac Enzymes 05/11/22 05/11/22 05/12/22 Range/Units 12:59 19:35 01:15 AST 14 14 (5-40) units/L CK-MB (CK-2) 5.4 H 6.4 H (0.0-4.0) ng/mL 05/12/22 Range/Units 10:33 AST (5-40) units/L CK-MB (CK-2) 7.9 H (0.0-4.0) ng/mL Coagulation 05/11/22 Range/Units 19:35 PT 15.5 H (12.2-14.9) Sec. INR 1.10 (0.87-1.13) APTT 42.1 H (24.2-36.6) Sec. Lipids 05/11/22 Range/Units 12:59 Triglycerides 124 (2-149) mg/dL Cholesterol 100 (50-199) mg/dL HDL Cholesterol 36 L (40-59) mg/dL Cholesterol/HDL Ratio 2.77 % CBC 05/11/22 05/11/22 05/12/22 Range/Units 12:59 19:35 02:50 WBC 12.4 H 10.6 (4.5-11.0) K/mm3 RBC 3.46 L 3.14 L (3.65-5.03) M/mm3 Hgb 10.3 L 9.6 L 9.4 L (11.8-15.2) gm/dl Hct 32.1 L 30.5 L 29.8 L (35.5-45.6) % Plt Count 208 214 201 (140-440) K/mm3 Lymph # (Auto) 0.7 L (1.2-5.4) K/mm3 Lipscomb # (Auto) 0.9 H (0.0-0.8) K/mm3 Eos # (Auto) 0.0 (0.0-0.4) K/mm3 Baso # (Auto) 0.1 (0.0-0.1) K/mm3 Comprehensive Metabolic Panel 05/11/22 05/12/22 Range/Units 12:59 01:15 Sodium 142 140 (137-145) mmol/L Potassium 4.0 5.4 H D (3.6-5.0) mmol/L Chloride 92.5 L 98.1 (98-107) mmol/L Carbon Dioxide 30 25 (22-30) mmol/L BUN 29 H 36 H (9-20) mg/dL Creatinine 4.9 H 5.8 H (0.8-1.3) mg/dL Glucose 73 L 92 (75-100) mg/dL Calcium 9.9 9.4 (8.4-10.2) mg/dL AST 14 14 (5-40) units/L ALT 8 < 5 L (7-56) units/L Alkaline Phosphatase 134 H 134 H (35-129) units/L Total Protein 8.7 H 7.3 (6.3-8.2) g/dL Albumin 4.0 3.7 L (3.9-5) g/dL - Imaging and Cardiology Echo: pending, report reviewed EKG interpretations - Telemetry EKG Rhythm: Sinus Tachycardia - EKG Sinus rhythms and dysrhythmias: sinus tachycardia Ventricular dysrhythmias: ventricular premature com Assessment and Plan Patient is a 57-year-old male with a past medical history of end-stage renal disease on hemodialysis, chronic respiratory failure, cirrhosis, who was brought to the ED for complaint of altered mental status/slurred speech AMS NSTEMI Hypotension-currently on Levophed ESRD on HD- Neprhology following Acute on chronic respiratory failure-pulmonology following History of cirrhosis Anemia Echo 07/18/2021-LV systolic function is mildly decreased, LVEF is 49%.RV moderately dilated. RV systolic function is severely reduced. RV systolic pressure is mildly elevated. Small circumferential pericardial effusion. Ascites present "Sparkly" myocardial texture may be seen in cardiac amyloid but is not specific. When compared with the study from 04/14/2020, the calculated EF is slightly lower today and the TR is less Plan: EKG shows sinus tach with PVCs. Patient denies any complaints of chest pain. Troponin elevation noted however patient chest pain-free. Echo with bubble study pending Patient requiring pressors will hold off ischemic eval at this time until patient is stable. Wean pressors as telemetry Furthermore discussed with patient possible need in future of cardiac cath patient refused and said that before having any such procedure he would rather speak with his providers at [facility]. Discussed risk and benefits patient verbalized understanding and acknowledgment Per documentation patient for paracentesis in the a.m. we will hold anticoagulation at this time Will resume outpatient Lipitor 40 mg p.o. nightly No UMA ARB's or beta-kyra due to hypotension and patient requiring pressors CXR shows pulmonary congestion however negative for CHF. Will defer volume management to nephrology due to renal function Patient seen in conjunction with Dr. Reed who agrees with this plan of care - Patient Problems (1) Anemia Current Visit: Yes Status: Acute (2) Anterior ST segment depression Current Visit: Yes Status: Acute (3) Hyperkalemia Current Visit: Yes Status: Acute (4) Hypotension Current Visit: Yes Status: Acute Qualifiers: Hypotension type: idiopathic hypotension Qualified Code(s): I95.0 - Idiopathic hypotension (5) NSTEMI (non-ST elevated myocardial infarction) Current Visit: Yes Status: Acute (6) Pulmonary edema Current Visit: Yes Status: Acute Qualifiers: Chronicity: acute Qualified Code(s): J81.0 - Acute pulmonary edema (7) COPD (chronic obstructive pulmonary disease) Current Visit: Yes Status: Chronic (8) ESRD on hemodialysis Current Visit: Yes Status: Chronic
[2022-05-12 15:04] LABS: Hepatitis B Surface Antigen Non-Reactive (Negative); Hepatitis C Virus Antibody Non-Reactive (NonReactive)
--- NOTE | 2022-05-12 22:02 | Progress Note ---
Assessment and Plan Assessment and plan: Assessment #Acute hypoxic respiratory failure #Pulmonary edema #NSTEMI #Hypotension #ESRD on HD, //Tue dialysis #Hyperkalemia #Ascites #History of cirrhosis #Anemia of CKD Plan: - d/w cardiology, cardiac cath discussed with patient to which the patient declined. medical management with lipitor. hold - ECHO with bubble study pending, - patient hypotensive, currently on levophed, MAP goal >65. wean as map tolerates - d/c home minoxidil as it will only further lower BP. Hold anti-HTN therapy at this time given BP - started on midodrine for BP augmentation. Was on this as a prior medication per [facility] records. - cxr indicative of pulmonary edema. Patient states his "dry weight" is 55-56 kg. He is 70 kg. States he is compliant with dialysis. - nephrology consulted for dialysis. - kayexylate 30 gm ordered x 1 for hyperkalemia - will need paracentesis but will likely hold off until after patient is dialyzed and BP more stable. The high probability of a clinically significant, sudden or life threatening deterioration of the [multi] system(s) required my full and direct attention, intervention and personal management. The aggregate critical care time was [90] minutes. This time is in addition to time spent performing reported procedures but includes the following: [x] Data Review and interpretation [x] Patient assessment and monitoring of vital signs [x] Documentation [x] Medication orders and management History Interval history: Patient seen and evaluated at bedside. Very aggitated, stated multiple times he would leave [facility] so he could see his doctors at [place]. I counseled the patient on how this would not beneficial for his health and the potential for should he do this. He stated afterwards he would stay. Patient had no other complaints otherwise. CP had resolved. He stated he felt dizzy prior to admission but he no longer felt that this was the case. BP on bedside monitor was 107/78 and patient was receiving levophed infusion. Patient states he is very congested. He was written an antibiotic for "an infection" and was adament about recieving this. I explained his hypoxia was likely due to pulmonary edema and reviewed findings of his cxr. Additionally, pt states he is compliant with dialysis and his dry weight is typically 55 kg. He was shocked to know what his weight was this admission. He states that his abdomen has progressively becoming more distended and that he last had a paracentesis 6 months ago. Hospitalist Physical - Physical exam Narrative exam: Physical Exam: VITAL SIGNS: Reviewed. GENERAL: The patient appears normally developed, Vital signs as documented. mil d aggitation HEAD: No signs of head trauma. EYES: Pupils are equal. Extraocular motions intact. EARS: Hearing grossly intact. MOUTH: poor dentition. Oropharynx is normal. NECK: No adenopathy, no JVD. CHEST: Chest with clear breath sounds bilaterally. No wheezes, rales, or rhonchi. CARDIAC: Regular rate and rhythm. S1 and S2, without murmurs, gallops, or rubs. VASCULAR: No Edema. Peripheral pulses normal and equal in all extremities. ABDOMEN: distended abdomen. noticeable ascites. MUSCULOSKELETAL: Good range of motion of all major joints. Extremities without clubbing, cyanosis or edema. NEUROLOGIC EXAM: Alert and oriented x 4. no focal sensory or strength deficits. PSYCHIATRIC: Mood normal. SKIN: detail exam as documented in skin assessment - Constitutional Vitals: Temp Pulse Resp BP Pulse Ox 98.0 F 87 21 84/45 98 05/12/22 20:00 05/12/22 21:30 05/12/22 21:30 05/12/22 21:30 05/12/22 21:15 General appearance: Present: no acute distress HEART Score - HEART Score Troponin: Troponin T 0.381 ng/mL (0.00-0.029) H* 05/12/22 01:15 Results - Labs CBC & Chem 7: 05/12/22 02:50 05/12/22 01:15 Labs: Laboratory Last Values WBC 10.6 K/mm3 (4.5-11.0) 05/12/22 02:50 RBC 3.14 M/mm3 (3.65-5.03) L 05/12/22 02:50 Hgb 9.4 gm/dl (11.8-15.2) L 05/12/22 02:50 Hct 29.8 % (35.5-45.6) L 05/12/22 02:50 MCV 95 fl (84-94) H 05/12/22 02:50 MCH 30 pg (28-32) 05/12/22 02:50 MCHC 32 % (32-34) 05/12/22 02:50 RDW 16.6 % (13.2-15.2) H 05/12/22 02:50 Plt Count 201 K/mm3 (140-440) 05/12/22 02:50 Lymph % (Auto) 6.8 % (13.4-35.0) L 05/12/22 02:50 Thomas % (Auto) 8.4 % (0.0-7.3) H 05/12/22 02:50 Eos % (Auto) 0.3 % (0.0-4.3) 05/12/22 02:50 Baso % (Auto) 1.3 % (0.0-1.8) 05/12/22 02:50 Lymph # (Auto) 0.7 K/mm3 (1.2-5.4) L 05/12/22 02:50 Thomas # (Auto) 0.9 K/mm3 (0.0-0.8) H 05/12/22 02:50 Eos # (Auto) 0.0 K/mm3 (0.0-0.4) 05/12/22 02:50 Baso # (Auto) 0.1 K/mm3 (0.0-0.1) 05/12/22 02:50 Add Manual Diff Complete 05/11/22 12:59 Total Counted 100 05/11/22 12:59 Seg Neutrophils % 83.2 % (40.0-70.0) H 05/12/22 02:50 Seg Neuts % (Manual) 94.0 % (40.0-70.0) H 05/11/22 12:59 Band Neutrophils % 0 % 05/11/22 12:59 Lymphocytes % (Manual) 3.0 % (13.4-35.0) L 05/11/22 12:59 Reactive Lymphs % (Man) 0 % 05/11/22 12:59 Monocytes % (Manual) 3.0 % (0.0-7.3) 05/11/22 12:59 Eosinophils % (Manual) 0 % (0.0-4.3) 05/11/22 12:59 Basophils % (Manual) 0 % (0.0-1.8) 05/11/22 12:59 Metamyelocytes % 0 % 05/11/22 12:59 Myelocytes % 0 % 05/11/22 12:59 Promyelocytes % 0 % 05/11/22 12:59 Blast Cells % 0 % 05/11/22 12:59 Nucleated RBC % Not Reportable 05/11/22 12:59 Seg Neutrophils # 8.9 K/mm3 (1.8-7.7) H 05/12/22 02:50 Seg Neutrophils # Man 11.7 K/mm3 (1.8-7.7) H 05/11/22 12:59 Band Neutrophils # 0.0 K/mm3 05/11/22 12:59 Lymphocytes # (Manual) 0.4 K/mm3 (1.2-5.4) L 05/11/22 12:59 Abs React Lymphs (Man) 0.0 K/mm3 05/11/22 12:59 Monocytes # (Manual) 0.4 K/mm3 (0.0-0.8) 05/11/22 12:59 Eosinophils # (Manual) 0.0 K/mm3 (0.0-0.4) 05/11/22 12:59 Basophils # (Manual) 0.0 K/mm3 (0.0-0.1) 05/11/22 12:59 Metamyelocytes # 0.0 K/mm3 05/11/22 12:59 Myelocytes # 0.0 K/mm3 05/11/22 12:59 Promyelocytes # 0.0 K/mm3 05/11/22 12:59 Blast Cells # 0.0 K/mm3 05/11/22 12:59 WBC Morphology Not Reportable 05/11/22 12:59 Hypersegmented Neuts Not Reportable 05/11/22 12:59 Hyposegmented Neuts Rare 05/11/22 12:59 Hypogranular Neuts Not Reportable 05/11/22 12:59 Smudge Cells Not Reportable 05/11/22 12:59 Toxic Granulation Not Reportable 05/11/22 12:59 Toxic Vacuolation Not Reportable 05/11/22 12:59 Dohle Bodies Not Reportable 05/11/22 12:59 Pelger-Huet Anomaly Not Reportable 05/11/22 12:59 Talon Rods Not Reportable 05/11/22 12:59 Platelet Estimate Consistent w auto 05/11/22 12:59 Clumped Platelets Not Reportable 05/11/22 12:59 Plt Clumps, EDTA Not Reportable 05/11/22 12:59 Large Platelets Rare 05/11/22 12:59 Giant Platelets Not Reportable 05/11/22 12:59 Platelet Satelliting Not Reportable 05/11/22 12:59 Plt Morphology Comment Not Reportable 05/11/22 12:59 RBC Morphology Not Reportable 05/11/22 12:59 Dimorphic RBCs Not Reportable 05/11/22 12:59 Polychromasia Not Reportable 05/11/22 12:59 Hypochromasia Not Reportable 05/11/22 12:59 Poikilocytosis 1+ 05/11/22 12:59 Anisocytosis Not Reportable 05/11/22 12:59 Microcytosis Not Reportable 05/11/22 12:59 Macrocytosis Not Reportable 05/11/22 12:59 Spherocytes Not Reportable 05/11/22 12:59 Pappenheimer Bodies Not Reportable 05/11/22 12:59 Sickle Cells Not Reportable 05/11/22 12:59 Target Cells Rare 05/11/22 12:59 Tear Drop Cells Not Reportable 05/11/22 12:59 Ovalocytes Not Reportable 05/11/22 12:59 Stomatocytes 1+ 05/11/22 12:59 Helmet Cells Not Reportable 05/11/22 12:59 [place] Bodies Not Reportable 05/11/22 12:59 Bradley Rings Not Reportable 05/11/22 12:59 Macdoel Cells Not Reportable 05/11/22 12:59 Bite Cells Not Reportable 05/11/22 12:59 Crenated Cell Not Reportable 05/11/22 12:59 Elliptocytes Not Reportable 05/11/22 12:59 Acanthocytes (Spur) Not Reportable 05/11/22 12:59 Rouleaux Not Reportable 05/11/22 12:59 Hemoglobin C Crystals Not Reportable 05/11/22 12:59 Schistocytes Not Reportable 05/11/22 12:59 Malaria parasites Not Reportable 05/11/22 12:59 Jose Bodies Not Reportable 05/11/22 12:59 Hem Pathologist Commnt No 05/11/22 12:59 PT 15.5 Sec. (12.2-14.9) H 05/11/22 19:35 INR 1.10 (0.87-1.13) 05/11/22 19:35 APTT 42.1 Sec. (24.2-36.6) H 05/11/22 19:35 Heparin Anti-Xa Level < 0.10 U.I./ml (0.3-0.7) L 05/12/22 10:33 Sodium 140 mmol/L (137-145) 05/12/22 01:15 Potassium 5.4 mmol/L (3.6-5.0) H D 05/12/22 01:15 Chloride 98.1 mmol/L (98-107) 05/12/22 01:15 Carbon Dioxide 25 mmol/L (22-30) 05/12/22 01:15 Anion Gap 22 mmol/L 05/12/22 01:15 BUN 36 mg/dL (9-20) H 05/12/22 01:15 Creatinine 5.8 mg/dL (0.8-1.3) H 05/12/22 01:15 Estimated GFR 12 ml/min 05/12/22 01:15 BUN/Creatinine Ratio 6 % 05/12/22 01:15 Glucose 92 mg/dL (75-100) 05/12/22 01:15 POC Glucose 116 mg/dL (70-105) H 05/11/22 15:42 Calcium 9.4 mg/dL (8.4-10.2) 05/12/22 01:15 Total Bilirubin 0.20 mg/dL (0.1-1.2) 05/12/22 01:15 AST 14 units/L (5-40) 05/12/22 01:15 ALT < 5 units/L (7-56) L 05/12/22 01:15 Alkaline Phosphatase 134 units/L (35-129) H 05/12/22 01:15 Total Creatine Kinase 77 units/L (55-170) 05/12/22 10:33 CK-MB (CK-2) 7.9 ng/mL (0.0-4.0) H 05/12/22 10:33 CK-MB (CK-2) Rel Index 10.2 (0-4) H 05/12/22 10:33 Troponin T 0.381 ng/mL (0.00-0.029) H* 05/12/22 01:15 Total Protein 7.3 g/dL (6.3-8.2) 05/12/22 01:15 Albumin 3.7 g/dL (3.9-5) L 05/12/22 01:15 Albumin/Globulin Ratio 1.0 % 05/12/22 01:15 Triglycerides 124 mg/dL (2-149) 05/11/22 12:59 Cholesterol 100 mg/dL (50-199) 05/11/22 12:59 LDL Cholesterol Direct 37 mg/dL (50-130) L 05/11/22 12:59 HDL Cholesterol 36 mg/dL (40-59) L 05/11/22 12:59 Cholesterol/HDL Ratio 2.77 % 05/11/22 12:59 Hepatitis A IgM Ab Non-reactive (NonReactive) 05/12/22 14:34 Hep Bs Antigen Non-reactive (Negative) 05/12/22 14:34 Hep B Core IgM Ab Non-reactive (NonReactive) 05/12/22 14:34 Hepatitis C Antibody Non-reactive (NonReactive) 05/12/22 14:34 Active Medications - Current Medications Current Medications: Generic Name Dose Route Start Last Admin Trade Name Freq PRN Reason Stop Dose Admin Acetaminophen 650 mg 05/11/22 18:59 Acetaminophen 325 Mg Tab PO Q4H PRN Pain MILD(1-3)/Fever >100.5/BRIAN Aspirin 81 mg 05/13/22 10:00 Aspirin 81 Mg Tab Chew PO QDAY [facility] Atorvastatin Calcium 40 mg 05/12/22 22:00 Atorvastatin 40 Mg Tab PO QHS [facility] Famotidine 10 mg 05/11/22 22:00 05/12/22 10:30 Famotidine 10 Mg Tab PO Not Given BID [facility] Heparin Sodium (Porcine) 2,800 unit 05/11/22 19:08 05/12/22 16:06 Heparin 10,000 Units/10 Ml Vial 40 unit/kg (2800 unit) 2,800 unit IV Administration Q6H PRN Anti-Xa Assay < 0.1 units/ml Heparin Sodium/Sodium Chloride 25,000 unit in 500 mls @ 20 mls/hr 05/11/22 20:00 05/12/22 17:18 Heparin/ 0.45% Nacl-25,000 Unit/500 Ml IV 1,200 units/hr TITRATE CRISTIN 24 mls/hr Titration Protocol 1,000 UNITS/HR NORepinephrine/NS 8 MG-250 ML 8 mg in 250 mls @ 3.75 mls/hr 05/12/22 04:00 05/12/22 20:48 Norepinephrine/Ns 8 Mg-250 Ml (Double Conc) IV 6 mcg/min TITRATE CRISTIN 11.25 mls/hr Administration Protocol 2 MCG/MIN Metoclopramide HCl 10 mg 05/11/22 18:59 Metoclopramide 10 Mg/2 Ml Inj IV Q6H PRN Nausea And Vomiting Midodrine 10 mg 05/12/22 12:00 05/12/22 16:52 Midodrine 10 Mg Tab PO 10 mg TID@0800,1200,1600 CRISTIN Administration Ondansetron HCl 4 mg 05/11/22 18:59 Ondansetron 4 Mg/2 Ml Inj IV Q8H PRN Nausea And Vomiting Oxycodone/Acetaminophen 1 tab 05/11/22 18:59 Oxycodone /Acetaminophen 5-325mg Tab PO Q6H PRN Pain, Moderate (4-6) Sodium Chloride 10 ml 05/11/22 22:00 05/12/22 11:00 Sodium Chloride 0.9% 10 Ml Flush Syringe IV 10 ml BID CRISTIN Administration Sodium Chloride 10 ml 05/11/22 18:59 Sodium Chloride 0.9% 10 Ml Flush Syringe IV PRN PRN LINE FLUSH
[2022-05-13] MEDS: HEPARIN 10,000 UNITS/10 ML VIAL IV PRN (00:39)
[2022-05-13] MEDS: HEPARIN/ 0.45% NACL DRIP 25,000 UNIT/500 ML BAG IV SCH (03:00)
[2022-05-13] MEDS: MIDODRINE 10 MG TAB PO SCH ×4 (08:34→17:14)
[2022-05-13] MEDS: FAMOTIDINE 10 MG TAB PO SCH (09:07)
[2022-05-13 09:18] LABS: Hemolysis Index 1338
[2022-05-13 09:27] LABS: BUN/Creatinine Ratio TNR; Calcium TNR mg/dL (8.4-10.2)
--- NOTE | 2022-05-13 09:27 | Progress Note ---
Assessment and Plan End Stage Renal Disease Hypotension AMS Anemia Hyperkalemia Plan: Hemodialysis today with gentle UF. BMP is pending this AM Renally dose medications Obtain daily weights Monitor I/O's daily Assess dialysis needs daily Outpatient HD: [facility] [place] under Dr. Barraza, on ,T,S schedule Subjective Date of service: 05/13/22 Principal diagnosis: ESRD Interval history: remains in ICU Objective - Vital Signs Vital signs: Vital Signs - 12hr 05/12/22 05/12/22 05/12/22 21:30 21:32 21:46 Temperature Pulse Rate 87 88 96 H Pulse Rate [ From Monitor] Respiratory 21 16 23 Rate Blood Pressure 84/45 84/45 84/45 O2 Sat by Pulse 79 L Oximetry 05/12/22 05/12/22 05/12/22 22:00 22:15 22:30 Temperature Pulse Rate 84 85 86 Pulse Rate [ From Monitor] Respiratory 21 22 21 Rate Blood Pressure 102/60 112/62 116/70 O2 Sat by Pulse 100 91 98 Oximetry 05/12/22 05/12/22 05/12/22 22:45 23:00 23:15 Temperature Pulse Rate 83 82 82 Pulse Rate [ From Monitor] Respiratory 19 22 21 Rate Blood Pressure 106/61 113/70 114/76 O2 Sat by Pulse 100 100 100 Oximetry 05/12/22 05/12/22 05/12/22 23:30 23:36 23:45 Temperature 97.6 F Pulse Rate 88 85 Pulse Rate [ From Monitor] Respiratory 21 14 Rate Blood Pressure 111/71 110/63 O2 Sat by Pulse 99 90 Oximetry 05/13/22 05/13/22 05/13/22 00:00 00:15 00:30 Temperature Pulse Rate 83 93 H 86 Pulse Rate [ 103 H From Monitor] Respiratory 20 18 18 Rate Blood Pressure 131/86 107/60 109/50 O2 Sat by Pulse 100 86 Oximetry 05/13/22 05/13/22 05/13/22 00:45 01:00 01:15 Temperature Pulse Rate 88 89 92 H Pulse Rate [ From Monitor] Respiratory 19 15 16 Rate Blood Pressure 99/57 104/68 113/68 O2 Sat by Pulse 95 98 Oximetry 05/13/22 05/13/22 05/13/22 01:30 01:45 02:00 Temperature Pulse Rate 94 H 91 H 90 Pulse Rate [ From Monitor] Respiratory 18 18 14 Rate Blood Pressure 112/74 105/60 95/61 O2 Sat by Pulse 95 100 100 Oximetry 05/13/22 05/13/22 05/13/22 02:15 02:30 02:46 Temperature Pulse Rate 91 H 85 103 H Pulse Rate [ From Monitor] Respiratory 15 14 22 Rate Blood Pressure 102/64 109/63 109/63 O2 Sat by Pulse 100 Oximetry 05/13/22 05/13/22 05/13/22 03:00 03:15 03:30 Temperature Pulse Rate 83 80 85 Pulse Rate [ From Monitor] Respiratory 16 13 15 Rate Blood Pressure 94/57 95/62 105/65 O2 Sat by Pulse 100 84 98 Oximetry 05/13/22 05/13/22 05/13/22 03:45 04:00 04:16 Temperature 99 F Pulse Rate 85 85 Pulse Rate [ 103 H From Monitor] Respiratory 17 15 Rate Blood Pressure 103/61 112/67 112/67 O2 Sat by Pulse 99 100 100 Oximetry 05/13/22 05/13/22 05/13/22 04:30 04:46 05:00 Temperature Pulse Rate 92 H 86 Pulse Rate [ From Monitor] Respiratory 23 22 Rate Blood Pressure 112/67 107/69 107/69 O2 Sat by Pulse 94 Oximetry 05/13/22 05/13/22 05/13/22 05:15 05:30 05:46 Temperature Pulse Rate 93 H 96 H 93 H Pulse Rate [ From Monitor] Respiratory 24 16 22 Rate Blood Pressure 103/68 103/68 112/51 O2 Sat by Pulse 100 76 L 79 L Oximetry 05/13/22 05/13/22 05/13/22 06:00 06:15 06:32 Temperature Pulse Rate 73 92 H Pulse Rate [ From Monitor] Respiratory 15 22 Rate Blood Pressure 91/53 109/69 O2 Sat by Pulse 100 72 L Oximetry 05/13/22 05/13/22 05/13/22 06:45 07:00 07:15 Temperature Pulse Rate 86 86 Pulse Rate [ From Monitor] Respiratory 14 14 Rate Blood Pressure 88/55 90/57 101/62 O2 Sat by Pulse 78 L 66 L 91 Oximetry 05/13/22 05/13/22 05/13/22 07:30 07:46 08:00 Temperature 98.4 F Pulse Rate 88 92 H 89 Pulse Rate [ 93 H From Monitor] Respiratory 21 26 H 24 Rate Blood Pressure 103/66 95/64 94/56 O2 Sat by Pulse 97 Oximetry 05/13/22 05/13/22 05/13/22 08:15 08:30 08:37 Temperature Pulse Rate 87 85 Pulse Rate [ From Monitor] Respiratory 22 15 Rate Blood Pressure 99/58 92/53 O2 Sat by Pulse 98 100 Oximetry 05/13/22 05/13/22 08:45 09:00 Temperature Pulse Rate 82 82 Pulse Rate [ From Monitor] Respiratory 16 14 Rate Blood Pressure 92/63 89/54 O2 Sat by Pulse 99 92 Oximetry - Lab 05/13/22 08:50 05/13/22 08:50 Most recent lab results Calcium 9.4 mg/dL (8.4-10.2) 05/12/22 01:15 Medications & Allergies - Medications Allergies/Adverse Reactions: Allergies No Known Allergies Allergy (Verified 12/24/21 05:13) Home Medications: Home Medications Medication Instructions Recorded Confirmed Last Taken Type Ergocalciferol (Vitamin D2) 50,000 unit PO QWEEK 12/24/21 12/24/21 12/20/21 History [Vitamin D2] Losartan [Cozaar] 25 mg PO QDAY 12/24/21 12/24/21 12/23/21 History Sucroferric Oxyhydroxide(Nf) 1,000 mg PO TIDWM 12/24/21 12/24/21 12/23/21 History [Velphoro (Nf)] minoxidiL [Loniten] 5 mg PO QDAY 12/24/21 12/24/21 12/23/21 History Active Medications: Generic Name Dose Route Start Last Admin Trade Name Girishq PRN Reason Stop Dose Admin Acetaminophen 650 mg 05/11/22 18:59 Acetaminophen 325 Mg Tab PO Q4H PRN Pain MILD(1-3)/Fever >100.5/BRIAN Aspirin 81 mg 05/13/22 10:00 05/13/22 09:07 Aspirin 81 Mg Tab Chew PO 81 mg QDAY CRISTIN Administration Atorvastatin Calcium 40 mg 05/12/22 22:00 05/12/22 22:28 Atorvastatin 40 Mg Tab PO 40 mg QHS CRISTIN Administration Famotidine 10 mg 05/11/22 22:00 05/13/22 09:07 Famotidine 10 Mg Tab PO 10 mg BID CRISTIN Administration Heparin Sodium (Porcine) 2,800 unit 05/11/22 19:08 05/13/22 00:39 Heparin 10,000 Units/10 Ml Vial 40 unit/kg (2800 unit) 2,800 unit IV Administration Q6H PRN Anti-Xa Assay < 0.1 units/ml Heparin Sodium/Sodium Chloride 25,000 unit in 500 mls @ 20 mls/hr 05/11/22 20:00 05/13/22 03:00 Heparin/ 0.45% Nacl-25,000 Unit/500 Ml IV 1,400 units/hr TITRATE CRISTIN 28 mls/hr Administration Protocol 1,000 UNITS/HR NORepinephrine/NS 8 MG-250 ML 8 mg in 250 mls @ 3.75 mls/hr 05/12/22 04:00 05/13/22 05:45 Norepinephrine/Ns 8 Mg-250 Ml (Double Conc) IV 0 mcg/min TITRATE CRISTIN 0 mls/hr Titration Protocol 2 MCG/MIN Metoclopramide HCl 10 mg 05/11/22 18:59 Metoclopramide 10 Mg/2 Ml Inj IV Q6H PRN Nausea And Vomiting Midodrine 10 mg 05/12/22 12:00 05/13/22 08:34 Midodrine 10 Mg Tab PO 10 mg TID@0800,1200,1600 CRISTIN Administration Ondansetron HCl 4 mg 05/11/22 18:59 Ondansetron 4 Mg/2 Ml Inj IV Q8H PRN Nausea And Vomiting Oxycodone/Acetaminophen 1 tab 05/11/22 18:59 Oxycodone /Acetaminophen 5-325mg Tab PO Q6H PRN Pain, Moderate (4-6) Sodium Chloride 10 ml 05/11/22 22:00 05/13/22 09:07 Sodium Chloride 0.9% 10 Ml Flush Syringe IV 10 ml BID CRISTIN Administration Sodium Chloride 10 ml 05/11/22 18:59 Sodium Chloride 0.9% 10 Ml Flush Syringe IV PRN PRN LINE FLUSH
[2022-05-13 09:33] LABS: Blood Urea Nitrogen TNR mg/dL (9-20)
[2022-05-13 09:44] LABS: Hematocrit 31.6 % (35.5-45.6); Hemoglobin 9.8 gm/dl (11.8-15.2); Mean Corpuscular HGB Conc 31 % (32-34); Mean Corpuscular Volume 95 fl (84-94); Platelet Count 215 K/mm3 (140-440); Red Blood Count 3.31 M/mm3 (3.65-5.03); Red Cell Distribution Width 18.5 % (13.2-15.2)
[2022-05-13] MEDS ORDERED: ASPIRIN 81 MG TAB CHEW PO SCH (10:00)
--- NOTE | 2022-05-13 11:12 | Progress Note ---
Assessment and Plan Patient is a 57-year-old male with a past medical history of end-stage renal disease on hemodialysis, chronic respiratory failure, cirrhosis, who was brought to the ED for complaint of altered mental status/slurred speech AMS NSTEMI suspect type II Hypotension-currently on Levophed ESRD on HD- Neprhology following Volume overload Cor pulmonale Acute on chronic respiratory failure-pulmonology following History of cirrhosis Anemia Echo 07/18/2021-LV systolic function is mildly decreased, LVEF is 49%.RV moderately dilated. RV systolic function is severely reduced. RV systolic pressure is mildly elevated. Small circumferential pericardial effusion. Ascites present "Sparkly" myocardial texture may be seen in cardiac amyloid but is not specific. When compared with the study from 04/14/2020, the calculated EF is slightly lower today and the TR is less Echo 05/12/2022-EF 50 to 55%. Flattened septum consistent with right ventricular volume and pressure overload. Septum is flat in systole consistent with RV pressure overload. Septum is flattened in diastole consistent with RV volume overload. Right ventricle is hypokinetic. Right ventricle is moderately dilated. Saline bubble study did not demonstrate PFO. Atrial septum is bowed toward left consistent with elevated right atrial pressures. Left atrium moderately dilated. Borderline aortic stenosis with trace to mild aortic regurgitation. Mitral valve is annular calcification. Mitral valve chordae are thickened and are calcified. Trace mitral regurg. Mild tricuspid regurgitation. Trace pulmonic regurgitation Plan: Patient remains chest pain-free Suspect NSTEMI type II in setting of end-stage renal disease and volume overload. Okay to stop heparin drip Echo results noted above Patient off pressors however patient still with low to soft BPs. No UMA/ARB's or beta-blockers. Per documentation patient for paracentesis in the a.m. Continue lipitor 40 mg p.o. nightly Will defer volume management to nephrology due to renal function due to renal function Furthermore discussed with patient possible need in future of cardiac cath patient refused and said that before having any such procedure he would rather speak with his providers at [place]. Discussed risk and benefits patient matilde welch understanding and acknowledgment Patient seen in conjunction with Dr. Reed who agrees with this plan of care - Patient Problems (1) Anemia Current Visit: Yes Status: Acute (2) Anterior ST segment depression Current Visit: Yes Status: Acute (3) Hyperkalemia Current Visit: Yes Status: Acute (4) Hypotension Current Visit: Yes Status: Acute Qualifiers: Hypotension type: idiopathic hypotension Qualified Code(s): I95.0 - Idiopathic hypotension (5) NSTEMI (non-ST elevated myocardial infarction) Current Visit: Yes Status: Acute (6) Pulmonary edema Current Visit: Yes Status: Acute Qualifiers: Chronicity: acute Qualified Code(s): J81.0 - Acute pulmonary edema (7) COPD (chronic obstructive pulmonary disease) Current Visit: Yes Status: Chronic (8) ESRD on hemodialysis Current Visit: Yes Status: Chronic Subjective Date of service: 05/13/22 Principal diagnosis: ESRD Interval history: Patient sitting in bed. Patient appears slightly lethargic Sinus 80s on monitor with no events Objective Vital Signs Temp Pulse Pulse Resp BP BP Pulse Ox 05/13/22 10:00 84 17 93/58 100 05/13/22 09:45 83 17 101/53 100 05/13/22 09:30 81 14 89/54 96 05/13/22 09:15 89 22 93/53 98 05/13/22 09:00 82 14 89/54 92 05/13/22 08:45 82 16 92/63 99 05/13/22 08:37 100 05/13/22 08:30 85 15 92/53 98 05/13/22 08:15 87 22 99/58 05/13/22 08:00 98.4 F 89 93 H 24 94/56 97 05/13/22 07:46 92 H 26 H 95/64 05/13/22 07:30 88 21 103/66 05/13/22 07:15 86 14 101/62 91 05/13/22 07:00 86 14 90/57 66 L 05/13/22 06:45 88/55 78 L 05/13/22 06:32 72 L 05/13/22 06:15 92 H 22 109/69 100 05/13/22 06:00 73 15 91/53 05/13/22 05:46 93 H 22 112/51 79 L 05/13/22 05:30 96 H 16 103/68 76 L 05/13/22 05:15 93 H 24 103/68 100 05/13/22 05:00 86 22 107/69 05/13/22 04:46 92 H 23 107/69 05/13/22 04:30 112/67 94 05/13/22 04:16 112/67 100 05/13/22 04:00 99 F 85 103 H 15 112/67 100 05/13/22 03:45 85 17 103/61 99 05/13/22 03:30 85 15 105/65 98 05/13/22 03:15 80 13 95/62 84 05/13/22 03:00 83 16 94/57 100 05/13/22 02:46 103 H 22 109/63 05/13/22 02:30 85 14 109/63 100 05/13/22 02:15 91 H 15 102/64 05/13/22 02:00 90 14 95/61 100 05/13/22 01:45 91 H 18 105/60 100 05/13/22 01:30 94 H 18 112/74 95 05/13/22 01:15 92 H 16 113/68 98 05/13/22 01:00 89 15 104/68 05/13/22 00:45 88 19 99/57 95 05/13/22 00:30 86 18 109/50 86 05/13/22 00:15 93 H 18 107/60 05/13/22 00:00 83 103 H 20 131/86 100 05/12/22 23:45 85 14 110/63 90 05/12/22 23:36 97.6 F 05/12/22 23:30 88 21 111/71 99 05/12/22 23:15 82 21 114/76 100 05/12/22 23:00 82 22 113/70 100 05/12/22 22:45 83 19 106/61 100 05/12/22 22:30 86 21 116/70 98 05/12/22 22:15 85 22 112/62 91 05/12/22 22:00 84 21 102/60 100 05/12/22 21:46 96 H 23 84/45 79 L 05/12/22 21:32 88 16 84/45 05/12/22 21:30 87 21 84/45 05/12/22 21:15 84 16 84/45 98 05/12/22 21:00 96 H 20 97/47 99 05/12/22 20:46 102 H 26 H 142/123 82 L 05/12/22 20:30 89 22 98/53 95 05/12/22 20:15 89 20 110/68 98 05/12/22 20:00 98.0 F 101 H 103 H 24 109/67 100 05/12/22 19:45 102 H 16 101/56 96 05/12/22 19:30 104 H 23 113/57 93 05/12/22 19:15 89 28 H 118/87 93 05/12/22 19:10 104 H 26 H 98/43 77 L 05/12/22 19:00 93 H 19 98/43 92 05/12/22 18:50 89 20 120/74 94 05/12/22 18:41 92 H 22 97 05/12/22 18:40 102 H 14 119/68 97 05/12/22 18:30 101 H 14 119/68 95 05/12/22 18:23 94 H 19 98 05/12/22 18:15 81 114/63 05/12/22 18:10 84 21 115/62 05/12/22 18:03 104 H 16 115/62 05/12/22 18:00 91 H 115/62 05/12/22 17:47 88 110/68 05/12/22 17:35 95 H 105/61 05/12/22 17:30 77 117/73 05/12/22 16:51 98.9 F 05/12/22 14:39 101/70 05/12/22 13:45 100/61 05/12/22 11:40 108 H 18 110/63 92 05/12/22 11:30 104 H 19 110/63 93 05/12/22 11:20 111 H 25 H 100/53 70 L 05/12/22 11:12 100/53 - Physical Examination General: No Apparent Distress HEENT: Positive: PERRL, Normocephaly Neck: Positive: trachea midline Cardiac: Positive: Reg Rate and Rhythm, Systolic Murmur Lungs: Positive: Decreased Breath Sounds Neuro: Positive: Grossly Intact Abdomen: Positive: Ascites Skin: Negative: Rash, Suspicious Lesions, Ulceration Extremities: Present: normal. Absent: edema - Labs and Meds Cardiac Enzymes 05/12/22 Range/Units 10:33 CK-MB (CK-2) 7.9 H (0.0-4.0) ng/mL CBC 05/13/22 Range/Units 08:50 WBC 10.1 (4.5-11.0) K/mm3 RBC 3.31 L (3.65-5.03) M/mm3 Hgb 9.8 L (11.8-15.2) gm/dl Hct 31.6 L (35.5-45.6) % Plt Count 215 (140-440) K/mm3 Comprehensive Metabolic Panel 05/13/22 Range/Units 08:50 Sodium TNR Potassium TNR Chloride TNR Carbon Dioxide TNR BUN TNR Creatinine TNR Glucose TNR Calcium TNR - Imaging and Cardiology EKG: report reviewed Echo: report reviewed - Telemetry EKG Rhythm: Sinus Rhythm - EKG Sinus rhythms and dysrhythmias: sinus tachycardia Ventricular dysrhythmias: ventricular premature com
--- NOTE | 2022-05-13 12:44 | Progress Note ---
Assessment and Plan 57 y/o male with complex medical history, originally admitted as stemi then called off, now with hypotension of unknown etiology 05/13/22: Stable for floor transfer after HD. 1. Start Midodrine 10 TID 2. Hold on all antihypertensives 3. Suggest repeat echo, last one done in [place] was July and at that time showed and EF of 45%. The was hypokinesis of left ventricle 4. Hold on IVF's 5. Resume home COPD regimen if any 6. Supplemental O2 Guarded prognosis. CCT 31 minutes. Subjective Date of service: 05/13/22 Principal diagnosis: ESRD Interval history: No acute events. Off levophed Objective - Constitutional Vitals: Vital Signs - 12hr 05/13/22 05/13/22 05/13/22 00:45 01:00 01:15 Temperature Pulse Rate 88 89 92 H Pulse Rate [ From Monitor] Respiratory 19 15 16 Rate Blood Pressure 99/57 104/68 113/68 O2 Sat by Pulse 95 98 Oximetry 05/13/22 05/13/22 05/13/22 01:30 01:45 02:00 Temperature Pulse Rate 94 H 91 H 90 Pulse Rate [ From Monitor] Respiratory 18 18 14 Rate Blood Pressure 112/74 105/60 95/61 O2 Sat by Pulse 95 100 100 Oximetry 05/13/22 05/13/22 05/13/22 02:15 02:30 02:46 Temperature Pulse Rate 91 H 85 103 H Pulse Rate [ From Monitor] Respiratory 15 14 22 Rate Blood Pressure 102/64 109/63 109/63 O2 Sat by Pulse 100 Oximetry 05/13/22 05/13/22 05/13/22 03:00 03:15 03:30 Temperature Pulse Rate 83 80 85 Pulse Rate [ From Monitor] Respiratory 16 13 15 Rate Blood Pressure 94/57 95/62 105/65 O2 Sat by Pulse 100 84 98 Oximetry 05/13/22 05/13/22 05/13/22 03:45 04:00 04:16 Temperature 99 F Pulse Rate 85 85 Pulse Rate [ 103 H From Monitor] Respiratory 17 15 Rate Blood Pressure 103/61 112/67 112/67 O2 Sat by Pulse 99 100 100 Oximetry 05/13/22 05/13/22 05/13/22 04:30 04:46 05:00 Temperature Pulse Rate 92 H 86 Pulse Rate [ From Monitor] Respiratory 23 22 Rate Blood Pressure 112/67 107/69 107/69 O2 Sat by Pulse 94 Oximetry 05/13/22 05/13/22 05/13/22 05:15 05:30 05:46 Temperature Pulse Rate 93 H 96 H 93 H Pulse Rate [ From Monitor] Respiratory 24 16 22 Rate Blood Pressure 103/68 103/68 112/51 O2 Sat by Pulse 100 76 L 79 L Oximetry 05/13/22 05/13/22 05/13/22 06:00 06:15 06:32 Temperature Pulse Rate 73 92 H Pulse Rate [ From Monitor] Respiratory 15 22 Rate Blood Pressure 91/53 109/69 O2 Sat by Pulse 100 72 L Oximetry 05/13/22 05/13/22 05/13/22 06:45 07:00 07:15 Temperature Pulse Rate 86 86 Pulse Rate [ From Monitor] Respiratory 14 14 Rate Blood Pressure 88/55 90/57 101/62 O2 Sat by Pulse 78 L 66 L 91 Oximetry 05/13/22 05/13/22 05/13/22 07:30 07:46 08:00 Temperature 98.4 F Pulse Rate 88 92 H 89 Pulse Rate [ 93 H From Monitor] Respiratory 21 26 H 24 Rate Blood Pressure 103/66 95/64 94/56 O2 Sat by Pulse 97 Oximetry 05/13/22 05/13/22 05/13/22 08:15 08:30 08:37 Temperature Pulse Rate 87 85 Pulse Rate [ From Monitor] Respiratory 22 15 Rate Blood Pressure 99/58 92/53 O2 Sat by Pulse 98 100 Oximetry 05/13/22 05/13/22 05/13/22 08:45 09:00 09:15 Temperature Pulse Rate 82 82 89 Pulse Rate [ From Monitor] Respiratory 16 14 22 Rate Blood Pressure 92/63 89/54 93/53 O2 Sat by Pulse 99 92 98 Oximetry 05/13/22 05/13/22 05/13/22 09:30 09:45 10:00 Temperature Pulse Rate 81 83 84 Pulse Rate [ From Monitor] Respiratory 14 17 17 Rate Blood Pressure 89/54 101/53 93/58 O2 Sat by Pulse 96 100 100 Oximetry 05/13/22 05/13/22 05/13/22 10:15 10:30 10:45 Temperature Pulse Rate 81 73 81 Pulse Rate [ From Monitor] Respiratory 16 14 14 Rate Blood Pressure 92/58 96/56 96/54 O2 Sat by Pulse 95 97 98 Oximetry 05/13/22 05/13/22 05/13/22 11:00 11:15 11:30 Temperature Pulse Rate 80 90 94 H Pulse Rate [ From Monitor] Respiratory 13 25 H Rate Blood Pressure 95/59 113/70 113/70 O2 Sat by Pulse 98 Oximetry 05/13/22 05/13/22 05/13/22 11:45 11:46 12:00 Temperature 97.5 F L Pulse Rate 94 H 87 Pulse Rate [ 90 From Monitor] Respiratory 23 Rate Blood Pressure 95/61 87/54 O2 Sat by Pulse 93 93 Oximetry 05/13/22 12:15 Temperature Pulse Rate 88 Pulse Rate [ From Monitor] Respiratory Rate Blood Pressure 86/48 O2 Sat by Pulse 83 L Oximetry - Labs CBC & Chem 7: 05/13/22 08:50 05/13/22 08:50 Labs: Abnormal lab results 05/12/22 05/13/22 Range/Units 22:46 08:50 RBC 3.31 L (3.65-5.03) M/mm3 Hgb 9.8 L (11.8-15.2) gm/dl Hct 31.6 L (35.5-45.6) % MCV 95 H (84-94) fl MCHC 31 L (32-34) % RDW 18.5 H (13.2-15.2) % Heparin Anti-Xa Level < 0.10 L (0.3-0.7) U.I./ml Medications & Allergies - Medications Allergies/Adverse Reactions: Allergies No Known Allergies Allergy (Verified 12/24/21 05:13) Home Medications: Home Medications Medication Instructions Recorded Confirmed Last Taken Type Ergocalciferol (Vitamin D2) 50,000 unit PO QWEEK 12/24/21 12/24/21 12/20/21 History [Vitamin D2] Losartan [Cozaar] 25 mg PO QDAY 12/24/21 12/24/21 12/23/21 History Sucroferric Oxyhydroxide(Nf) 1,000 mg PO TIDWM 12/24/21 12/24/21 12/23/21 History [Velphoro (Nf)] minoxidiL [Loniten] 5 mg PO QDAY 12/24/21 12/24/21 12/23/21 History Active Medications: Generic Name Dose Route Start Last Admin Trade Name Freq PRN Reason Stop Dose Admin Acetaminophen 650 mg 05/11/22 18:59 Acetaminophen 325 Mg Tab PO Q4H PRN Pain MILD(1-3)/Fever >100.5/BRIAN Aspirin 81 mg 05/13/22 10:00 05/13/22 09:07 Aspirin 81 Mg Tab Chew PO 81 mg QDAY CRISTIN Administration Atorvastatin Calcium 40 mg 05/12/22 22:00 05/12/22 22:28 Atorvastatin 40 Mg Tab PO 40 mg QHS CRISTIN Administration Famotidine 10 mg 05/11/22 22:00 05/13/22 09:07 Famotidine 10 Mg Tab PO 10 mg BID CRISTIN Administration NORepinephrine/NS 8 MG-250 ML 8 mg in 250 mls @ 3.75 mls/hr 05/12/22 04:00 05/13/22 05:45 Norepinephrine/Ns 8 Mg-250 Ml (Double Conc) IV 0 mcg/min TITRATE CRISTIN 0 mls/hr Titration Protocol 2 MCG/MIN Metoclopramide HCl 10 mg 05/11/22 18:59 Metoclopramide 10 Mg/2 Ml Inj IV Q6H PRN Nausea And Vomiting Midodrine 10 mg 05/12/22 12:00 05/13/22 11:50 Midodrine 10 Mg Tab PO 10 mg TID@0800,1200,1600 CRISTIN Administration Ondansetron HCl 4 mg 05/11/22 18:59 Ondansetron 4 Mg/2 Ml Inj IV Q8H PRN Nausea And Vomiting Oxycodone/Acetaminophen 1 tab 05/11/22 18:59 Oxycodone /Acetaminophen 5-325mg Tab PO Q6H PRN Pain, Moderate (4-6) Sodium Chloride 10 ml 05/11/22 22:00 05/13/22 09:07 Sodium Chloride 0.9% 10 Ml Flush Syringe IV 10 ml BID CRISTIN Administration Sodium Chloride 10 ml 05/11/22 18:59 Sodium Chloride 0.9% 10 Ml Flush Syringe IV PRN PRN LINE FLUSH HEART Score - HEART Score Troponin: Troponin T 0.381 ng/mL (0.00-0.029) H* 05/12/22 01:15
[2022-05-13] MEDS ORDERED: guaiFENesin DM 200/20 MG ORAL LIQD 10 ML PO PRN (13:26)
[2022-05-13] MEDS ORDERED: ALBUMIN HUMAN 25% (25 GM/100 ML) INJ IV SCH (14:00)
--- NOTE | 2022-05-13 15:39 | Progress Note ---
History Interval history: 05/13: COVID-19 PCR negative, Levophed titrated off. Received 25 g albumin x1 for hypotension. Hemodialysis planned for today. No acute events reported overnight. Patient is adamant that he he needs to walk and will not fall even though repeatedly educated by RN to call before getting out of bed. Plan to transfer to floor post HD. HD today. Hospitalist Physical - Constitutional Vitals: Temp Pulse Resp BP Pulse Ox 97.5 F L 84 23 108/62 91 05/13/22 11:45 05/13/22 15:15 05/13/22 12:00 05/13/22 15:15 05/13/22 15:15 General appearance: Present: no acute distress, well-nourished HEART Score - HEART Score Troponin: Troponin T 0.381 ng/mL (0.00-0.029) H* 05/12/22 01:15 Results - Labs CBC & Chem 7: 05/13/22 08:50 05/13/22 08:50 Labs: Laboratory Last Values WBC 10.1 K/mm3 (4.5-11.0) 05/13/22 08:50 RBC 3.31 M/mm3 (3.65-5.03) L 05/13/22 08:50 Hgb 9.8 gm/dl (11.8-15.2) L 05/13/22 08:50 Hct 31.6 % (35.5-45.6) L 05/13/22 08:50 MCV 95 fl (84-94) H 05/13/22 08:50 MCH 30 pg (28-32) 05/13/22 08:50 MCHC 31 % (32-34) L 05/13/22 08:50 RDW 18.5 % (13.2-15.2) H 05/13/22 08:50 Plt Count 215 K/mm3 (140-440) 05/13/22 08:50 Lymph % (Auto) 6.8 % (13.4-35.0) L 05/12/22 02:50 [place] % (Auto) 8.4 % (0.0-7.3) H 05/12/22 02:50 Eos % (Auto) 0.3 % (0.0-4.3) 05/12/22 02:50 Baso % (Auto) 1.3 % (0.0-1.8) 05/12/22 02:50 Lymph # (Auto) 0.7 K/mm3 (1.2-5.4) L 05/12/22 02:50 [place] # (Auto) 0.9 K/mm3 (0.0-0.8) H 05/12/22 02:50 Eos # (Auto) 0.0 K/mm3 (0.0-0.4) 05/12/22 02:50 Baso # (Auto) 0.1 K/mm3 (0.0-0.1) 05/12/22 02:50 Add Manual Diff Complete 05/11/22 12:59 Total Counted 100 05/11/22 12:59 Seg Neutrophils % 83.2 % (40.0-70.0) H 05/12/22 02:50 Seg Neuts % (Manual) 94.0 % (40.0-70.0) H 05/11/22 12:59 Band Neutrophils % 0 % 05/11/22 12:59 Lymphocytes % (Manual) 3.0 % (13.4-35.0) L 05/11/22 12:59 Reactive Lymphs % (Man) 0 % 05/11/22 12:59 Monocytes % (Manual) 3.0 % (0.0-7.3) 05/11/22 12:59 Eosinophils % (Manual) 0 % (0.0-4.3) 05/11/22 12:59 Basophils % (Manual) 0 % (0.0-1.8) 05/11/22 12:59 Metamyelocytes % 0 % 05/11/22 12:59 Myelocytes % 0 % 05/11/22 12:59 Promyelocytes % 0 % 05/11/22 12:59 Blast Cells % 0 % 05/11/22 12:59 Nucleated RBC % Not Reportable 05/11/22 12:59 Seg Neutrophils # 8.9 K/mm3 (1.8-7.7) H 05/12/22 02:50 Seg Neutrophils # Man 11.7 K/mm3 (1.8-7.7) H 05/11/22 12:59 Band Neutrophils # 0.0 K/mm3 05/11/22 12:59 Lymphocytes # (Manual) 0.4 K/mm3 (1.2-5.4) L 05/11/22 12:59 Abs React Lymphs (Man) 0.0 K/mm3 05/11/22 12:59 Monocytes # (Manual) 0.4 K/mm3 (0.0-0.8) 05/11/22 12:59 Eosinophils # (Manual) 0.0 K/mm3 (0.0-0.4) 05/11/22 12:59 Basophils # (Manual) 0.0 K/mm3 (0.0-0.1) 05/11/22 12:59 Metamyelocytes # 0.0 K/mm3 05/11/22 12:59 Myelocytes # 0.0 K/mm3 05/11/22 12:59 Promyelocytes # 0.0 K/mm3 05/11/22 12:59 Blast Cells # 0.0 K/mm3 05/11/22 12:59 WBC Morphology Not Reportable 05/11/22 12:59 Hypersegmented Neuts Not Reportable 05/11/22 12:59 Hyposegmented Neuts Rare 05/11/22 12:59 Hypogranular Neuts Not Reportable 05/11/22 12:59 Smudge Cells Not Reportable 05/11/22 12:59 Toxic Granulation Not Reportable 05/11/22 12:59 Toxic Vacuolation Not Reportable 05/11/22 12:59 Dohle Bodies Not Reportable 05/11/22 12:59 Pelger-Huet Anomaly Not Reportable 05/11/22 12:59 Talon Rods Not Reportable 05/11/22 12:59 Platelet Estimate Consistent w auto 05/11/22 12:59 Clumped Platelets Not Reportable 05/11/22 12:59 Plt Clumps, EDTA Not Reportable 05/11/22 12:59 Large Platelets Rare 05/11/22 12:59 Giant Platelets Not Reportable 05/11/22 12:59 Platelet Satelliting Not Reportable 05/11/22 12:59 Plt Morphology Comment Not Reportable 05/11/22 12:59 RBC Morphology Not Reportable 05/11/22 12:59 Dimorphic RBCs Not Reportable 05/11/22 12:59 Polychromasia Not Reportable 05/11/22 12:59 Hypochromasia Not Reportable 05/11/22 12:59 Poikilocytosis 1+ 05/11/22 12:59 Anisocytosis Not Reportable 05/11/22 12:59 Microcytosis Not Reportable 05/11/22 12:59 Macrocytosis Not Reportable 05/11/22 12:59 Spherocytes Not Reportable 05/11/22 12:59 Pappenheimer Bodies Not Reportable 05/11/22 12:59 Sickle Cells Not Reportable 05/11/22 12:59 Target Cells Rare 05/11/22 12:59 Tear Drop Cells Not Reportable 05/11/22 12:59 Ovalocytes Not Reportable 05/11/22 12:59 Stomatocytes 1+ 05/11/22 12:59 Helmet Cells Not Reportable 05/11/22 12:59 [place] Bodies Not Reportable 05/11/22 12:59 [place] Rings Not Reportable 05/11/22 12:59 [place] Cells Not Reportable 05/11/22 12:59 Bite Cells Not Reportable 05/11/22 12:59 Crenated Cell Not Reportable 05/11/22 12:59 Elliptocytes Not Reportable 05/11/22 12:59 Acanthocytes (Spur) Not Reportable 05/11/22 12:59 Rouleaux Not Reportable 05/11/22 12:59 Hemoglobin C Crystals Not Reportable 05/11/22 12:59 Schistocytes Not Reportable 05/11/22 12:59 Malaria parasites Not Reportable 05/11/22 12:59 Jose Bodies Not Reportable 05/11/22 12:59 Hem Pathologist Commnt No 05/11/22 12:59 PT 15.5 Sec. (12.2-14.9) H 05/11/22 19:35 INR 1.10 (0.87-1.13) 05/11/22 19:35 APTT 42.1 Sec. (24.2-36.6) H 05/11/22 19:35 Heparin Anti-Xa Level < 0.10 U.I./ml (0.3-0.7) L 05/13/22 08:50 Sodium TNR 05/13/22 08:50 Potassium TNR 05/13/22 08:50 Chloride TNR 05/13/22 08:50 Carbon Dioxide TNR 05/13/22 08:50 Anion Gap TNR 05/13/22 08:50 BUN TNR 05/13/22 08:50 Creatinine TNR 05/13/22 08:50 Estimated GFR TNR 05/13/22 08:50 BUN/Creatinine Ratio TNR 05/13/22 08:50 Glucose TNR 05/13/22 08:50 POC Glucose 116 mg/dL (70-105) H 05/11/22 15:42 Calcium TNR 05/13/22 08:50 Total Bilirubin 0.20 mg/dL (0.1-1.2) 05/12/22 01:15 AST 14 units/L (5-40) 05/12/22 01:15 ALT < 5 units/L (7-56) L 05/12/22 01:15 Alkaline Phosphatase 134 units/L (35-129) H 05/12/22 01:15 Total Creatine Kinase 77 units/L (55-170) 05/12/22 10:33 CK-MB (CK-2) 7.9 ng/mL (0.0-4.0) H 05/12/22 10:33 CK-MB (CK-2) Rel Index 10.2 (0-4) H 05/12/22 10:33 Troponin T 0.381 ng/mL (0.00-0.029) H* 05/12/22 01:15 Total Protein 7.3 g/dL (6.3-8.2) 05/12/22 01:15 Albumin 3.7 g/dL (3.9-5) L 05/12/22 01:15 Albumin/Globulin Ratio 1.0 % 05/12/22 01:15 Triglycerides 124 mg/dL (2-149) 05/11/22 12:59 Cholesterol 100 mg/dL (50-199) 05/11/22 12:59 LDL Cholesterol Direct 37 mg/dL (50-130) L 05/11/22 12:59 HDL Cholesterol 36 mg/dL (40-59) L 05/11/22 12:59 Cholesterol/HDL Ratio 2.77 % 05/11/22 12:59 Coronavirus (PCR) Negative (Negative) 05/13/22 10:08 Hepatitis A IgM Ab Non-reactive (NonReactive) 05/12/22 14:34 Hep Bs Antigen Non-reactive (Negative) 05/12/22 14:34 Hep B Core IgM Ab Non-reactive (NonReactive) 05/12/22 14:34 Hepatitis C Antibody Non-reactive (NonReactive) 05/12/22 14:34 Granados/IV: Voiding Method Toilet Active Medications - Current Medications Current Medications: Generic Name Dose Route Start Last Admin Trade Name Freq PRN Reason Stop Dose Admin Acetaminophen 650 mg 05/11/22 18:59 Acetaminophen 325 Mg Tab PO Q4H PRN Pain MILD(1-3)/Fever >100.5/BRIAN Albumin Human 25 gm 05/13/22 14:00 Albumin Human 25% (25 Gm/100 Ml) Inj IV 05/13/22 18:00 ONCE@1400 CRISTIN Aspirin 81 mg 05/13/22 10:00 05/13/22 09:07 Aspirin 81 Mg Tab Chew PO 81 mg QDAY CRISTIN Administration Atorvastatin Calcium 40 mg 05/12/22 22:00 05/12/22 22:28 Atorvastatin 40 Mg Tab PO 40 mg QHS CRISTIN Administration Famotidine 10 mg 05/11/22 22:00 05/13/22 09:07 Famotidine 10 Mg Tab PO 10 mg BID CRISTIN Administration Guaifenesin 20 ml 05/13/22 13:26 05/13/22 13:59 Guaifenesin Dm 200/20 Mg Oral Liqd 10 Ml PO 20 ml Q4H PRN Administration Cough NORepinephrine/NS 8 MG-250 ML 8 mg in 250 mls @ 3.75 mls/hr 05/12/22 04:00 05/13/22 05:45 Norepinephrine/Ns 8 Mg-250 Ml (Double Conc) IV 0 mcg/min TITRATE CRISTIN 0 mls/hr Titration Protocol 2 MCG/MIN Metoclopramide HCl 10 mg 05/11/22 18:59 Metoclopramide 10 Mg/2 Ml Inj IV Q6H PRN Nausea And Vomiting Midodrine 10 mg 05/12/22 12:00 05/13/22 11:50 Midodrine 10 Mg Tab PO 10 mg TID@0800,1200,1600 CRISTIN Administration Ondansetron HCl 4 mg 05/11/22 18:59 Ondansetron 4 Mg/2 Ml Inj IV Q8H PRN Nausea And Vomiting Oxycodone/Acetaminophen 1 tab 05/11/22 18:59 Oxycodone /Acetaminophen 5-325mg Tab PO Q6H PRN Pain, Moderate (4-6) Sodium Chloride 10 ml 05/11/22 22:00 05/13/22 09:07 Sodium Chloride 0.9% 10 Ml Flush Syringe IV 10 ml BID CRISTIN Administration Sodium Chloride 10 ml 05/11/22 18:59 Sodium Chloride 0.9% 10 Ml Flush Syringe IV PRN PRN LINE FLUSH
--- NOTE | 2022-05-13 16:00 | Progress Note ---
Assessment and Plan Assessment and plan: This is a 56-year-old male with ESRD on HD ([facility]), EtOH cirrhosis, HTN, chronic respiratory failure with COPD on 2 to 3 L home oxygen admitted for hypotension Neuro: h/o EtOH abuse -Reorientation as needed -Maintain sleep-wake cycle -CIWA if needed Cardiac: NSTEMI suspect type II, hypotension. h/o cor pulmonale -Cardiology consulted, appreciate recommendations -Blood pressure monitoring per protocol -s/p vasopressor support with levophed -MAP goal greater than 65 -Started on midodrine -Echocardiogram shows EF 50-55%, Flattened septum consistent with right ventricular volume and pressure overload. Septum is flat in systole consistent with RV pressure overload. Septum is flattened in diastole consistent with RV volume overload. Right ventricle is hypokinetic. Right ventricle is moderately dilated. Saline bubble study did not demonstrate PFO. Atrial septum is bowed toward left consistent with elevated right atrial pressures. Left atrium moderately dilated. Borderline aortic stenosis with trace to mild aortic regurgitation. Mitral valve is annular calcification. Mitral valve chordae are thickened and are calcified. Trace mitral regurg. Mild tricuspid regurgitation. Trace pulmonic regurgitation -Holding heparin gtt -No ACEi or ARB insetting of hypotension -Per cardiology: Echo 07/18/2021-LV systolic function is mildly decreased, LVEF is 49%.RV moderately dilated. RV systolic function is severely reduced. RV systolic pr essure is mildly elevated. Small circumferential pericardial effusion. Ascites present "Sparkly" myocardial texture may be seen in cardiac amyloid but is not specific. When compared with the study from 04/14/2020, the calculated EF is slightly lower today and the TR is less -Furthermore discussed with patient possible need in future of cardiac cath patient refused and said that before having any such procedure he would rather speak with his providers at [place]. Discussed risk and benefits patient verbalized understanding and acknowledgment Respiratory: Acute on chronic hypoxic respiratory failure. h/o COPD on 2 to 3 L home oxygen, pulmonary edema -Initial CXR shows pulmonary edema -Currently on nasal cannula 2 to 3 L -Pulmonary hygiene -SPO2 monitoring per protocol- GI: Ascites, h/o Etoh cirrhosis -24 hours +991 mL -PPI -Renal cardiac diet -Paracentesis pending -BR: Colace : ESRD on HD, hyperkalemia -Nephrology consulted, appreciate recommendations -HD per nephro -Monitor intake and output -Renally dose medications -Avoid nephrotoxic medications -Trend BMP ID: NAD -COVID 19 PCR (-) -f/u blood culture -Monitor WBC and temperature curve Endo: NAD -Avoid hypoglycemia Heme: Anemia on Chronic disease -Trend CBC -Transfuse hemoglobin less than 7 -SCDs to BLE while in bed The high probability of a clinically significant, sudden or life threatening deterioration of the [multi] system(s) required my full and direct attention, intervention and personal management. The aggregate critical care time was [60] minutes. This time is in addition to time spent performing reported procedures but includes the following: [x] Data Review and interpretation [x] Patient assessment and monitoring of vital signs [x] Documentation [x] Medication orders and management Disposition Plan: possible transfer to IMCU Total Time Spent with Patient (Minutes): 60 History Interval history: This is a 56-year-old male with ESRD on HD (Tuesday, , Tuesday), EtOH cirrhosis HTN, chronic respiratory failure with COPD and 2 to 3 L home oxygen who presented to emergency department on 05/11 with altered mental status via EMS in the emergency department patient had ST depression and initially code STEMI was called but after consultation with cardiology code STEMI was called off. Patient was found to be hypotensive with systolic around 80 and received IV fluids and was to be transferred to the floor with consults to nephrology and cardiology. Overnight on 05/12 patient remained hypotensive despite IV fluid boluses and was eventually started on IV Levophed and transferred to the ICU with consult to [facility]. Hospital course to date: 05/12: Started on midodrine 10 mg 3 times daily, on assessment patient was very aggitated, stated multiple times he would leave [place] so he could see his doctors at [place]. Dr. James counseled the patient on how this would not beneficial for his health and the potential for should he do this. He stated afterwards he would stay. Patient had no other complaints otherwise. CP had resolved. He stated he felt dizzy prior to admission but he no longer felt that this was the case. BP on bedside monitor was 107/78 and patient was receiving levophed infusion. Patient states he is very congested. He was written an antibiotic for "an infection" and was adament about recieving this. I explained his hypoxia was likely due to pulmonary edema and reviewed findings of his cxr. Additionally, pt states he is compliant with dialysis and his dry weight is typically 55 kg. He was shocked to know what his weight was this admission. He states that his abdomen has progressively becoming more distended and that he last had a paracentesis 6 months ago. 05/13: COVID-19 PCR negative, Levophed titrated off. Received 25 g albumin x1 for hypotension. Hemodialysis planned for today. No acute events reported overnight. Patient is adamant that he he needs to walk and will not fall even though repeatedly educated by RN to call before getting out of bed. Plan to transfer to [facility] post HD. HD today. Hospitalist Physical - Constitutional Vitals: Temp Pulse Resp BP Pulse Ox 97.5 F L 84 23 108/62 91 05/13/22 11:45 05/13/22 15:15 05/13/22 12:00 05/13/22 15:15 05/13/22 15:15 General appearance: Present: no acute distress, well-nourished HEART Score - HEART Score Troponin: Troponin T 0.381 ng/mL (0.00-0.029) H* 05/12/22 01:15 Results - Labs CBC & Chem 7: 05/13/22 08:50 05/13/22 08:50 Labs: Laboratory Last Values WBC 10.1 K/mm3 (4.5-11.0) 05/13/22 08:50 RBC 3.31 M/mm3 (3.65-5.03) L 05/13/22 08:50 Hgb 9.8 gm/dl (11.8-15.2) L 05/13/22 08:50 Hct 31.6 % (35.5-45.6) L 05/13/22 08:50 MCV 95 fl (84-94) H 05/13/22 08:50 MCH 30 pg (28-32) 05/13/22 08:50 MCHC 31 % (32-34) L 05/13/22 08:50 RDW 18.5 % (13.2-15.2) H 05/13/22 08:50 Plt Count 215 K/mm3 (140-440) 05/13/22 08:50 Lymph % (Auto) 6.8 % (13.4-35.0) L 05/12/22 02:50 [place] % (Auto) 8.4 % (0.0-7.3) H 05/12/22 02:50 Eos % (Auto) 0.3 % (0.0-4.3) 05/12/22 02:50 Baso % (Auto) 1.3 % (0.0-1.8) 05/12/22 02:50 Lymph # (Auto) 0.7 K/mm3 (1.2-5.4) L 05/12/22 02:50 [place] # (Auto) 0.9 K/mm3 (0.0-0.8) H 05/12/22 02:50 Eos # (Auto) 0.0 K/mm3 (0.0-0.4) 05/12/22 02:50 Baso # (Auto) 0.1 K/mm3 (0.0-0.1) 05/12/22 02:50 Add Manual Diff Complete 05/11/22 12:59 Total Counted 100 05/11/22 12:59 Seg Neutrophils % 83.2 % (40.0-70.0) H 05/12/22 02:50 Seg Neuts % (Manual) 94.0 % (40.0-70.0) H 05/11/22 12:59 Band Neutrophils % 0 % 05/11/22 12:59 Lymphocytes % (Manual) 3.0 % (13.4-35.0) L 05/11/22 12:59 Reactive Lymphs % (Man) 0 % 05/11/22 12:59 Monocytes % (Manual) 3.0 % (0.0-7.3) 05/11/22 12:59 Eosinophils % (Manual) 0 % (0.0-4.3) 05/11/22 12:59 Basophils % (Manual) 0 % (0.0-1.8) 05/11/22 12:59 Metamyelocytes % 0 % 05/11/22 12:59 Myelocytes % 0 % 05/11/22 12:59 Promyelocytes % 0 % 05/11/22 12:59 Blast Cells % 0 % 05/11/22 12:59 Nucleated RBC % Not Reportable 05/11/22 12:59 Seg Neutrophils # 8.9 K/mm3 (1.8-7.7) H 05/12/22 02:50 Seg Neutrophils # Man 11.7 K/mm3 (1.8-7.7) H 05/11/22 12:59 Band Neutrophils # 0.0 K/mm3 05/11/22 12:59 Lymphocytes # (Manual) 0.4 K/mm3 (1.2-5.4) L 05/11/22 12:59 Abs React Lymphs (Man) 0.0 K/mm3 05/11/22 12:59 Monocytes # (Manual) 0.4 K/mm3 (0.0-0.8) 05/11/22 12:59 Eosinophils # (Manual) 0.0 K/mm3 (0.0-0.4) 05/11/22 12:59 Basophils # (Manual) 0.0 K/mm3 (0.0-0.1) 05/11/22 12:59 Metamyelocytes # 0.0 K/mm3 05/11/22 12:59 Myelocytes # 0.0 K/mm3 05/11/22 12:59 Promyelocytes # 0.0 K/mm3 05/11/22 12:59 Blast Cells # 0.0 K/mm3 05/11/22 12:59 WBC Morphology Not Reportable 05/11/22 12:59 Hypersegmented Neuts Not Reportable 05/11/22 12:59 Hyposegmented Neuts Rare 05/11/22 12:59 Hypogranular Neuts Not Reportable 05/11/22 12:59 Smudge Cells Not Reportable 05/11/22 12:59 Toxic Granulation Not Reportable 05/11/22 12:59 Toxic Vacuolation Not Reportable 05/11/22 12:59 Dohle Bodies Not Reportable 05/11/22 12:59 Pelger-Huet Anomaly Not Reportable 05/11/22 12:59 Talon Rods Not Reportable 05/11/22 12:59 Platelet Estimate Consistent w auto 05/11/22 12:59 Clumped Platelets Not Reportable 05/11/22 12:59 Plt Clumps, EDTA Not Reportable 05/11/22 12:59 Large Platelets Rare 05/11/22 12:59 Giant Platelets Not Reportable 05/11/22 12:59 Platelet Satelliting Not Reportable 05/11/22 12:59 Plt Morphology Comment Not Reportable 05/11/22 12:59 RBC Morphology Not Reportable 05/11/22 12:59 Dimorphic RBCs Not Reportable 05/11/22 12:59 Polychromasia Not Reportable 05/11/22 12:59 Hypochromasia Not Reportable 05/11/22 12:59 Poikilocytosis 1+ 05/11/22 12:59 Anisocytosis Not Reportable 05/11/22 12:59 Microcytosis Not Reportable 05/11/22 12:59 Macrocytosis Not Reportable 05/11/22 12:59 Spherocytes Not Reportable 05/11/22 12:59 Pappenheimer Bodies Not Reportable 05/11/22 12:59 Sickle Cells Not Reportable 05/11/22 12:59 Target Cells Rare 05/11/22 12:59 Tear Drop Cells Not Reportable 05/11/22 12:59 Ovalocytes Not Reportable 05/11/22 12:59 Stomatocytes 1+ 05/11/22 12:59 Helmet Cells Not Reportable 05/11/22 12:59 Castillo-Elkins Bodies Not Reportable 05/11/22 12:59 [place] Rings Not Reportable 05/11/22 12:59 Jessica Cells Not Reportable 05/11/22 12:59 Bite Cells Not Reportable 05/11/22 12:59 Crenated Cell Not Reportable 05/11/22 12:59 Elliptocytes Not Reportable 05/11/22 12:59 Acanthocytes (Spur) Not Reportable 05/11/22 12:59 Rouleaux Not Reportable 05/11/22 12:59 Hemoglobin C Crystals Not Reportable 05/11/22 12:59 Schistocytes Not Reportable 05/11/22 12:59 Malaria parasites Not Reportable 05/11/22 12:59 Jose Bodies Not Reportable 05/11/22 12:59 Hem Pathologist Commnt No 05/11/22 12:59 PT 15.5 Sec. (12.2-14.9) H 05/11/22 19:35 INR 1.10 (0.87-1.13) 05/11/22 19:35 APTT 42.1 Sec. (24.2-36.6) H 05/11/22 19:35 Heparin Anti-Xa Level < 0.10 U.I./ml (0.3-0.7) L 05/13/22 08:50 Sodium TNR 05/13/22 08:50 Potassium TNR 05/13/22 08:50 Chloride TNR 05/13/22 08:50 Carbon Dioxide TNR 05/13/22 08:50 Anion Gap TNR 05/13/22 08:50 BUN TNR 05/13/22 08:50 Creatinine TNR 05/13/22 08:50 Estimated GFR TNR 05/13/22 08:50 BUN/Creatinine Ratio TNR 05/13/22 08:50 Glucose TNR 05/13/22 08:50 POC Glucose 116 mg/dL (70-105) H 05/11/22 15:42 Calcium TNR 05/13/22 08:50 Total Bilirubin 0.20 mg/dL (0.1-1.2) 05/12/22 01:15 AST 14 units/L (5-40) 05/12/22 01:15 ALT < 5 units/L (7-56) L 05/12/22 01:15 Alkaline Phosphatase 134 units/L (35-129) H 05/12/22 01:15 Total Creatine Kinase 77 units/L (55-170) 05/12/22 10:33 CK-MB (CK-2) 7.9 ng/mL (0.0-4.0) H 05/12/22 10:33 CK-MB (CK-2) Rel Index 10.2 (0-4) H 05/12/22 10:33 Troponin T 0.381 ng/mL (0.00-0.029) H* 05/12/22 01:15 Total Protein 7.3 g/dL (6.3-8.2) 05/12/22 01:15 Albumin 3.7 g/dL (3.9-5) L 05/12/22 01:15 Albumin/Globulin Ratio 1.0 % 05/12/22 01:15 Triglycerides 124 mg/dL (2-149) 05/11/22 12:59 Cholesterol 100 mg/dL (50-199) 05/11/22 12:59 LDL Cholesterol Direct 37 mg/dL (50-130) L 05/11/22 12:59 HDL Cholesterol 36 mg/dL (40-59) L 05/11/22 12:59 Cholesterol/HDL Ratio 2.77 % 05/11/22 12:59 Coronavirus (PCR) Negative (Negative) 05/13/22 10:08 Hepatitis A IgM Ab Non-reactive (NonReactive) 05/12/22 14:34 Hep Bs Antigen Non-reactive (Negative) 05/12/22 14:34 Hep B Core IgM Ab Non-reactive (NonReactive) 05/12/22 14:34 Hepatitis C Antibody Non-reactive (NonReactive) 05/12/22 14:34 Granados/IV: Voiding Method Toilet Active Medications - Current Medications Current Medications: Generic Name Dose Route Start Last Admin Trade Name Freq PRN Reason Stop Dose Admin Acetaminophen 650 mg 05/11/22 18:59 Acetaminophen 325 Mg Tab PO Q4H PRN Pain MILD(1-3)/Fever >100.5/BRIAN Albumin Human 25 gm 05/13/22 14:00 Albumin Human 25% (25 Gm/100 Ml) Inj IV 05/13/22 18:00 ONCE@1400 CRISTIN Aspirin 81 mg 05/13/22 10:00 05/13/22 09:07 Aspirin 81 Mg Tab Chew PO 81 mg QDAY CRISTIN Administration Atorvastatin Calcium 40 mg 05/12/22 22:00 05/12/22 22:28 Atorvastatin 40 Mg Tab PO 40 mg QHS CRISTIN Administration Docusate Sodium 100 mg 05/13/22 22:00 Docusate Sodium 100 Mg Cap PO BID CRISTIN Famotidine 10 mg 05/11/22 22:00 05/13/22 09:07 Famotidine 10 Mg Tab PO 10 mg BID CRISTIN Administration Guaifenesin 20 ml 05/13/22 13:26 05/13/22 13:59 Guaifenesin Dm 200/20 Mg Oral Liqd 10 Ml PO 20 ml Q4H PRN Administration Cough NORepinephrine/NS 8 MG-250 ML 8 mg in 250 mls @ 3.75 mls/hr 05/12/22 04:00 05/13/22 05:45 Norepinephrine/Ns 8 Mg-250 Ml (Double Conc) IV 0 mcg/min TITRATE CRISTIN 0 mls/hr Titration Protocol 2 MCG/MIN Metoclopramide HCl 10 mg 05/11/22 18:59 Metoclopramide 10 Mg/2 Ml Inj IV Q6H PRN Nausea And Vomiting Midodrine 10 mg 05/12/22 12:00 05/13/22 11:50 Midodrine 10 Mg Tab PO 10 mg TID@0800,1200,1600 CRISTIN Administration Ondansetron HCl 4 mg 05/11/22 18:59 Ondansetron 4 Mg/2 Ml Inj IV Q8H PRN Nausea And Vomiting Oxycodone/Acetaminophen 1 tab 05/11/22 18:59 Oxycodone /Acetaminophen 5-325mg Tab PO Q6H PRN Pain, Moderate (4-6) Sodium Chloride 10 ml 05/11/22 22:00 05/13/22 09:07 Sodium Chloride 0.9% 10 Ml Flush Syringe IV 10 ml BID CRISTIN Administration Sodium Chloride 10 ml 05/11/22 18:59 Sodium Chloride 0.9% 10 Ml Flush Syringe IV PRN PRN LINE FLUSH
[2022-05-13 16:27] LABS: Calcium 9.1 mg/dL (8.4-10.2)
[2022-05-13 18:23] VITALS: BP 112/72
[2022-05-13] MEDS ORDERED: DOCUSATE SODIUM 100 MG CAP PO SCH (22:00)
--- NOTE | 2022-05-14 09:29 | Discharge Summary ---
Providers - Providers Date of Admission: 05/11/22 18:59 Date of discharge: 05/13/22 Attending physician: KT JAMES MD 05/11/22 15:58 Consult to Cardiology [CONS] Stat Consulting Provider: Reason For Exam: Anterior ST depression, elevated troponin 05/11/22 19:06 Consult to Physician [CONS] Routine Comment: Consulting Provider: RENY LUCERO Physician Instructions: Reason For Exam: ESRD 05/12/22 03:33 Consult to Physician [CONS] Routine Comment: noted/ scooter Consulting Provider: DEMARIO BLUM Physician Instructions: Reason For Exam: Hypertension 05/12/22 14:37 Consult to Physician [CONS] Routine Comment: noted/ scooter Consulting Provider: KARISHMA FLEMING Physician Instructions: Reason For Exam: St depression Primary care physician: LINER MAN Hospitalization Condition: Stable Hospital course: This is a 56-year-old male with ESRD on HD (Tuesday, , Tuesday), EtOH cirrhosis HTN, chronic respiratory failure with COPD and 2 to 3 L home oxygen who presented to emergency department on 05/11 with altered mental status via EMS in the emergency department patient had ST depression and initially code STEMI was called but after consultation with cardiology code STEMI was called off. Patient was found to be hypotensive with systolic around 80 and received IV fluids and was to be transferred to the floor with consults to nephrology and cardiology. Overnight on 05/12 patient remained hypotensive despite IV fluid boluses and was eventually started on IV Levophed and transferred to the ICU with consult to [facility]. Hospital course to date: 05/12: Started on midodrine 10 mg 3 times daily, on assessment patient was very aggitated, stated multiple times he would leave [place] so he could see his doctors at [place]. Dr. James counseled the patient on how this would not beneficial for his health and the potential for should he do this. He stated afterwards he would stay. Patient had no other complaints otherwise. CP had resolved. He stated he felt dizzy prior to admission but he no longer felt that this was the case. BP on bedside monitor was 107/78 and patient was receiving levophed infusion. Patient states he is very congested. He was written an antibiotic for "an infection" and was adament about recieving this. I explained his hypoxia was likely due to pulmonary edema and reviewed findings of his cxr. Additionally, pt states he is compliant with dialysis and his dry weight is typically 55 kg. He was shocked to know what his weight was this admission. He states that his abdomen has progressively becoming more distended and that he last had a paracentesis 6 months ago. 05/13: COVID-19 PCR negative, Levophed titrated off. Received 25 g albumin x1 for hypotension. Hemodialysis planned for today. No acute events reported overnight. Patient is adamant that he he needs to walk and will not fall even though repeatedly educated by RN to call before getting out of bed. Plan to transfer to [facility] post HD. HD today. Patient very angry and demanding to leave AMA. RN, chargeback analyst and CARDIOVASCULAR PHYSICIAN ASSISTANT at bedside to talk patient into staying to complete his ongoing HD session which he agreed to first but eventually left without completing his treatment. Assessment and Plan Neuro: h/o EtOH abuse -Reorientation as needed -Maintain sleep-wake cycle -CIWA if needed Cardiac: NSTEMI suspect type II, hypotension. h/o cor pulmonale -Cardiology consulted, appreciate recommendations -Blood pressure monitoring per protocol -s/p vasopressor support with levophed -MAP goal greater than 65 -Started on midodrine -Echocardiogram shows EF 50-55%, Flattened septum consistent with right vent ricular volume and pressure overload. Septum is flat in systole consistent with RV pressure overload. Septum is flattened in diastole consistent with RV volume overload. Right ventricle is hypokinetic. Right ventricle is moderately dilated. Saline bubble study did not demonstrate PFO. Atrial septum is bowed toward left consistent with elevated right atrial pressures. Left atrium moderately dilated. Borderline aortic stenosis with trace to mild aortic regurgitation. Mitral valve is annular calcification. Mitral valve chordae are thickened and are calcified. Trace mitral regurg. Mild tricuspid regurgitation. Trace pulmonic regurgitation -Holding heparin gtt -No ACEi or ARB insetting of hypotension -Per cardiology: Echo 07/18/2021-LV systolic function is mildly decreased, LVEF is 49%.RV moderately dilated. RV systolic function is severely reduced. RV systolic pressure is mildly elevated. Small circumferential pericardial effusion. Ascites present "Sparkly" myocardial texture may be seen in cardiac amyloid but is not specific. When compared with the study from 04/14/2020, the calculated EF is slightly lower today and the TR is less -Furthermore discussed with patient possible need in future of cardiac cath patient refused and said that before having any such procedure he would rather speak with his providers at [place]. Discussed risk and benefits patient verbalized understanding and acknowledgment Respiratory: Acute on chronic hypoxic respiratory failure. h/o COPD on 2 to 3 L home oxygen, pulmonary edema -Initial CXR shows pulmonary edema -Currently on nasal cannula 2 to 3 L -Pulmonary hygiene -SPO2 monitoring per protocol- GI: Ascites, h/o Etoh cirrhosis -24 hours +991 mL -PPI -Renal cardiac diet -Paracentesis pending -BR: Colace : ESRD on HD, hyperkalemia -Nephrology consulted, appreciate recommendations -HD per nephro -Monitor intake and output -Renally dose medications -Avoid nephrotoxic medications -Trend BMP ID: NAD -COVID 19 PCR (-) -f/u blood culture -Monitor WBC and temperature curve Endo: NAD -Avoid hypoglycemia Heme: Anemia on Chronic disease -Trend CBC -Transfuse hemoglobin less than 7 -SCDs to BLE while in bed Disposition: LEFT AGAINST MEDICAL ADVICE Final Discharge Diagnosis (Prints w/discharge instructions): h/o EtOH abuse, Etoh cirrhosis, cor pulmonale, COPD on 2 to 3 L home oxyge,. NSTEMI suspect type II, hypotension, Acute on chronic hypoxic respiratory failure, pulmonary edema, ESRD on HD. Ascites, hyperkalemia, Anemia of Chronic disease Core Measure Documentation - Palliative Care Palliative Care/ Comfort Measures: Not Applicable - Core Measures Any of the following diagnoses?: history only Exam - Physical Exam Narrative exam: Physical Exam: VITAL SIGNS: Reviewed. GENERAL: The patient appears normally developed, Vital signs as documented. Agitation HEAD: No signs of head trauma. EYES: Pupils are equal. Extraocular motions intact. EARS: Hearing grossly intact. MOUTH: poor dentition. Oropharynx is normal. NECK: No adenopathy, no JVD. CHEST: Chest with clear breath sounds bilaterally. No wheezes, rales, or rhonchi. CARDIAC: Regular rate and rhythm. S1 and S2, without murmurs, gallops, or rubs. VASCULAR: No Edema. Peripheral pulses normal and equal in all extremities. ABDOMEN: distended abdomen. noticeable ascites. MUSCULOSKELETAL: Good range of motion of all major joints. Extremities with clubbing but without cyanosis or edema. NEUROLOGIC EXAM: Alert and oriented x 4. no focal sensory or strength deficits. PSYCHIATRIC: Mood: angry - Constitutional Vitals: Temp Pulse Resp BP Pulse Ox 98.2 F 68 183 H 112/72 97 05/13/22 20:00 05/13/22 18:05 05/13/22 18:05 05/13/22 18:05 05/13/22 18:05 Plan Follow up with: PRIMARY CARE, [Primary Care Provider] - 3-5 Days
== END 2022-05-13 19:00 | disposition left against medical advice (07) | DRG 189 ==
LOC: ED 12:15 → 4A 18:59 → CC1 05-12 03:55
PROVIDERS: ADMIT Internal Medicine; ATTEND Internal Medicine
PROC: 5A1D70Z Performance of Urinary Filtration, Intermittent, Less than 6 Hours Per Day (ICD-10-PCS; principal; 2022-05-13)
DX: J96.21 Acute and chronic respiratory failure with hypoxia (principal); J81.0 Acute pulmonary edema; N18.6 End stage renal disease; I95.9 Hypotension, unspecified; E87.5 Hyperkalemia; Z99.2 Dependence on renal dialysis; J44.9 Chronic obstructive pulmonary disease, unspecified; I21.A1 Myocardial infarction type 2; Z20.822 Contact with and (suspected) exposure to COVID-19; Z79.899 Other long term (current) drug therapy; Z53.29 Procedure and treatment not carried out because of patient's decision for other reasons; I95.0 Idiopathic hypotension; K70.31 Alcoholic cirrhosis of liver with ascites; I12.0 Hypertensive chronic kidney disease with stage 5 chronic kidney disease or end stage renal disease; D63.1 Anemia in chronic kidney disease; I27.81 Cor pulmonale (chronic)
CPT/HCPCS: 36415; 71045; 80048; 80053; 80061; 80074; 82550; 82553; 82962; 84484; 85007; 85014; 85018; 85025; 85027; 85049; 85520; 85610; 85730; 93306; 94760; G0378; J2354; J3490; C8929; J1644; J7030; J7040; U0003